=== PATIENT | male | born 1940 | race African-American/Black ===

== ENCOUNTER → 2016-07-01 | Outpatient (CLI) | payer MEDICARE, OTHER | LOC: RAD 14:13 | DX: R06.2 Wheezing (principal) | CPT/HCPCS: 71020 ==

== ENCOUNTER 2016-07-08 07:06 | Inpatient (IN) | payer MEDICARE, OTHER ==
--- NOTE | 2016-07-08 08:12 | ER Document Report ---
ED Respiratory Problem - General Chief Complaint: Shortness Of Breath Stated Complaint: DIFFICULTY BREATHING Time seen by provider: 08:08 Mode of Arrival: Medic Information source: Patient, Relative Notes: 75-year-old male presents to ED for shortness of breath C states he can't breathe with some rectal bleeding states he recently saw his primary and they told that he might be getting some blood from Dr. Kaur because he thought his lead level was 6.9. This man has an extensive history of renal failure diabetes and high blood pressure with sleep apnea. He usually does peritoneal dialysis at home. TRAVEL OUTSIDE OF THE [place] IN LAST 30 DAYS: No - HPI Onset: This morning Duration: Continuous Quality of pain: No pain Severity: None Pain Level: Denies Context: Other - High blood pressure diabetes renal failure and sleep apnea Short of Breath: Mild Sputum amount: None Associated symptoms: Short of breath Similar symptoms previously: Yes Recently seen / treated by doctor: Yes - Related Data Allergies/Adverse Reactions: No Known Allergies Allergy (Verified 09/02/15 07:02) Home Medications: Current Home Medications Amlodipine Besylate [Norvasc 5 mg Tablet] 5 mg PO DAILYP PRN 07/08/16 [History] Atenolol [Tenormin] 25 mg PO DAILYP PRN 07/08/16 [History] B Complex & C No.20/Folic Acid [Renal Caps Softgel] 1 mg PO DAILY 07/08/16 [ History] Calcitriol [Rocaltrol 0.25 mcg Capsule] 0.25 mcg PO MOFR 07/08/16 [History] Cinacalcet HCl [Sensipar 30 mg Tablet] 30 mg PO DAILY 07/08/16 [History] Epoetin Bk [Procrit Inj 20,000 Unit/1 ml Vial (Renal)] 20,000 units INJ ASDIR PRN 07/08/16 [History] Esomeprazole Magnesium [Nexium 24Hr] 20 mg PO DAILY 07/08/16 [History] Finasteride [Proscar 5 mg Tablet] 5 mg PO DAILY 07/08/16 [History] Folic Acid/Vitamin B Comp W-C [Nephrocaps Multiple Vitamin Capsule] 1 cap PO DAILY 07/08/16 [History] Insulin Glargine,Hum.rec.anlog [Lantus Insulin 100 Unit/1 ml 10 ml] 20 units SQ HSP PRN 07/08/16 [History] Lactobacillus Acidophilus [Probiotic] 1 cap PO DAILY 07/08/16 [History] Loperamide HCl [Imodium 2 mg Capsule] 2 mg PO Q6HP PRN 07/08/16 [History] Loratadine [Claritin 10 mg Tablet] 10 mg PO DAILY 07/08/16 [History] Magnesium Oxide [Mag-Ox 400 mg Tablet] 400 mg PO Q12 07/08/16 [History] Potassium Chloride [K-Tab ER] 20 meq PO DAILY 07/08/16 [History] Sertraline HCl [Zoloft 50 mg Tablet] 50 mg PO DAILY 07/08/16 [History] Past Medical History - General Information source: Patient - Social History Smoking Status: Former Smoker Cigarette use (# per day): No Chew tobacco use (# tins/day): No Smoking Education Provided: No Frequency of alcohol use: None Drug Abuse: None Occupation: disabled Lives with: Family Family History: Reviewed & Not Pertinent Patient has suicidal ideation: No Patient has homicidal ideation: No - Past Medical History Cardiac Medical History: Reports: Hx Hypertension Denies: Hx Atrial Fibrillation, Hx Congestive Heart Failure, Hx Coronary Artery Disease, Hx Heart Attack, Hx Hypercholesterolemia, Hx Peripheral Vascular Disease, Hx Pulmonary Embolism, Hx Heart Murmur Pulmonary Medical History: Reports: Hx Sleep Apnea Denies: Hx Asthma, Hx Bronchitis, Hx COPD, Hx Pneumonia, Hx Respiratory Failure, Hx Tuberculosis Neurological Medical History: Denies: Hx Cerebrovascular Accident, Hx Seizures Endocrine Medical History: Reports: Hx Diabetes Mellitus Type 2. Denies: Hx Graves' Disease, Hx Hyperthyroidism, Hx Hypothyroidism Renal/ Medical History: Reports: Hx End Stage Renal Disease, Hx Peritoneal Dialysis Malignancy Medical History: Reports None GI Medical History: Reports: Hx Gastroesophageal Reflux Disease, Hx Ulcer Musculoskeltal Medical History: Reports None Skin Medical History: Reports None Psychiatric Medical History: Reports: None, Hx Depression Traumatic Medical History: Reports: None Infectious Medical History: Reports: None Past Surgical History: Reports: Hx Inguinal Hernia, Hx Thyroid Surgery - Parathyroid, Hx Vascular Surgery - Fistula and peritoneal dialysis catheter. Denies: Hx Colostomy, Hx Pacemaker - Immunizations Hx Diphtheria, Pertussis, Tetanus Vaccination: No Hx Pneumococcal Vaccination: 01/04/12 Review of Systems - Review of Systems Constitutional: No symptoms reported EENT: No symptoms reported Cardiovascular: No symptoms reported Respiratory: Short of breath Gastrointestinal: No symptoms reported Genitourinary: No symptoms reported Male Genitourinary: No symptoms reported Musculoskeletal: No symptoms reported Skin: No symptoms reported Hematologic/Lymphatic: No symptoms reported Neurological/Psychological: No symptoms reported -: Yes All other systems reviewed and negative Physical Exam - Vital signs Vitals: Resp Pulse Ox 29 H 99 07/08/16 07:35 07/08/16 07:35 Interpretation: Normal - General General appearance: Appears well, Alert - HEENT Head: Normocephalic, Atraumatic Eyes: Normal Pupils: PERRL Neck: Other - Multiple keloid scars across the front of his neck around the side of his neck beside his ears across to his chest - Respiratory Respiratory status: No respiratory distress Chest status: Nontender Breath sounds: Normal, Decreased air movement Chest palpation: Normal - Cardiovascular Rhythm: Regular Heart sounds: Normal auscultation Murmur: No - Abdominal Inspection: Normal Distension: No distension Bowel sounds: Normal Tenderness: Nontender Organomegaly: No organomegaly - Back Back: Normal, Nontender - Extremities General upper extremity: Normal inspection, Nontender, Normal color, Normal ROM , Normal temperature General lower extremity: Normal inspection, Nontender, Normal color, Normal ROM , Normal temperature, Normal weight bearing. No: Mendy's sign - Neurological Neuro grossly intact: Yes Cognition: Normal Orientation: AAOx4 [place] Coma Scale Eye Opening: Spontaneous [place] Coma Scale Verbal: Oriented [place] Coma Scale Motor: Obeys Commands [place] Coma Scale Total: 15 Speech: Normal Motor strength normal: LUE, RUE, LLE, RLE Sensory: Normal - Psychological Associated symptoms: Normal affect, Normal mood - Skin Skin Temperature: Warm Skin Moisture: Dry Skin Color: Normal Course - Re-evaluation Re-evalutation: 07/08/16 18:[address] Adams before doing CT of the neck and before admit patient for hemoglobin of 6.7 with a positive stool for occult blood. Dr. Otto was notified and patient was admitted to [facility]. - Vital Signs Vital signs: Temp Pulse Resp BP Pulse Ox 97.3 F 80 22 H 172/84 H 97 07/08/16 18:42 07/08/16 18:42 07/08/16 18:42 07/08/16 18:42 07/08/16 18:42 - Laboratory Result Diagrams: 07/08/16 12:07 07/08/16 12:07 Laboratory results interpreted by me: 07/08/16 07/08/16 07/08/16 12:07 12:07 12:07 WBC 10.6 H RBC 2.82 L Hgb 6.7 L Hct 21.6 L MCV 76 L MCH 23.7 L MCHC 31.0 L RDW 22.6 H Seg Neuts % (Manual) 96 H Lymphocytes % (Manual) 3 L Monocytes % (Manual) 1 L Abs Neuts (Manual) 10.2 H Abs Lymphs (Manual) 0.3 L Sodium 135.5 L Potassium 3.5 L Chloride 91 L BUN 30 H Creatinine 6.35 H Est GFR ( Amer) 10 L Est GFR (Non-Af Amer) 9 L Glucose 201 H Calcium 8.0 L AST 16 L Alkaline Phosphatase 156 H Albumin 3.2 L Crossmatch See Detail - Diagnostic Test Radiology reviewed: Image reviewed, Reports reviewed - Consults Otto Time consulted: 12:00 Reason for consultation: 07/08/16 18:51 hemoglobin 6.7 positive occult blood, short of breath Consulted provider: will come to ER Discharge - Discharge Clinical Impression: ESRD (end stage renal disease) on dialysis, Rectal bleed Dyspnea Qualifiers: Dyspnea type: dyspnea on exertion Qualified Code(s): R06.09 - Other forms of dyspnea Anemia Qualifiers: Anemia type: unspecified type Qualified Code(s): D64.9 - Anemia, unspecified Disposition: ADMITTED INPATIENT Admitting Provider: Harrison otto Unit Admitted: [facility]
[2016-07-08] MEDS ORDERED: METHYLPREDNISOLONE INJ 125 MG/2 ML SDV IV ONE (08:43)
[2016-07-08] MEDS: ALBUTEROL SULFATE 0.083% NEB 2.5 MG/3 ML AMPUL NEB SCH ×2 (08:56→10:04)
[2016-07-08 12:24] LABS: HEMATOCRIT 21.6 % (37.9-51.0); HGB HCT DIFFERENCE -1.5; MEAN CORPUSCULAR HEMOGLOBIN 23.7 pg (27.0-33.4); MEAN CORPUSCULAR VOLUME 76 fl (80-97); RED BLOOD COUNT 2.82 10^6/uL (4.35-5.55); RED CELL DISTRIBUTION WIDTH 22.6 % (11.5-14.0); WHITE BLOOD COUNT 10.6 10^3/uL (4.0-10.5)
[2016-07-08 12:44] LABS: HEMOGLOBIN 6.7 g/dL (13.5-17.0)
[2016-07-08 12:46] LABS: ALANINE AMINOTRANSFERASE 23 U/L (21-72); ALBUMIN 3.2 g/dL (3.5-5.0); ALKALINE PHOSPHATASE 156 U/L (38-126); ANION GAP 18 (5-19); ASPARTATE AMINO TRANSFERASE 16 U/L (17-59); BASOPHILS % (MANUAL) 0 % (0-2); BILIRUBIN,TOTAL 0.7 mg/dL (0.2-1.3); BLOOD UREA NITROGEN 30 mg/dL (7-20); CARBON DIOXIDE 27 mmol/L (22-30); CHLORIDE 91 mmol/L (98-107); CREATINE KINASE 114 U/L (55-170); CREATININE RESULT 6.35 mg/dL (0.52-1.25); EOSINOPHILS % (MANUAL) 0 % (0-6); GLUCOSE 201 mg/dL (75-110); LYMPHOCYTES % (MANUAL) 3 % (13-45); POTASSIUM 3.5 mmol/L (3.6-5.0); SODIUM 135.5 mmol/L (137-145); TOTAL CELLS COUNTED 100; TOTAL PROTEIN 6.3 g/dL (6.3-8.2)
[2016-07-08 12:47] LABS: ANISOCYTOSIS 3+; HYPOCHROMASIA 1+; MICROCYTOSIS SLIGHT; OVALOCYTES 1+; POIKILOCYTOSIS 1+; POLYCHROMASIA SLIGHT; TEAR DROP CELLS SLIGHT
[2016-07-08 12:59] LABS: CREATINE KINASE MB 1.93 ng/mL (<4.55); TROPONIN I 0.017 ng/mL
[2016-07-08] MEDS ORDERED: ACETAMINOPHEN 325 MG TABLET PO PRN (13:55)
[2016-07-08] MEDS ORDERED: PANTOPRAZOLE SODIUM 40 MG VIAL IV ONE (14:03)
[2016-07-08] MEDS ORDERED: AMLODIPINE BESYLATE 10 MG TABLET PO PRN (14:07)
[2016-07-08] MEDS ORDERED: ATENOLOL 50 MG TABLET PO PRN ×2 (14:07→21:25)
[2016-07-08] MEDS ORDERED: DEXTROSE 50%-WATER 25 GM/50 ML DISP.SYRIN IV PRN ×2 (14:09)
[2016-07-08] MEDS ORDERED: INSULIN LISPRO 100 UNIT/ML 3 ML VIAL SUBCUT PRN (14:09)
[2016-07-08] MEDS ORDERED: DEXTROSE 40% GEL 15 GM TUBE PO PRN ×2 (14:09)
[2016-07-08] MEDS ORDERED: GLUCAGON,HUMAN RECOMB 1 MG INJ IM PRN (14:09)
[2016-07-08] MEDS ORDERED: NORMAL SALINE 250 ML IV PRN ×2 (14:09)
--- NOTE | 2016-07-08 14:13 | ER Document Report ---
Doctor's Note Notes: 07/08/16 14:12 Supervisory note. Patient independently seen and examined by myself and all treatment decisions made by myself Patient presents complaining of shortness of breath over past one week. He uses peritoneal dialysis at home and says he has not had any recent problems with that. Family reports he has dialysis access to his left upper extremity that was recently created and was supposed to have a balloon treatment done in [place] but this was stopped because the patient's respiratory difficulty. Patient reports slight nonproductive cough but denies fever, chills, nausea, or vomiting. Family also reports she's had rectal bleeding today. Patient says he was told he was anemic at his nephrologists office but has not received any blood. Patient denies hematemesis, melena, or dysuria. He denies any chest pain, abdominal pain, or back pain. Physical exam Skin warm and dry Oropharynx is moist speaks membranes no stridor horses drooling Neck has multiple keloids anteriorly and posteriorly. Trachea is midline. No JVD. No air hunger or tripoding is present Chest scattered wheezes bilaterally breath sounds equal good aeration accessory muscle use Heart regular rate and rhythm without murmur Abdomen bowel sounds positive soft nontender nondistended no guarding rebound rigidity Perineal dialysis catheter site appears healthy Extremities warm 2+ pulses Assessment and plan. Patient has mild respiratory difficulty for evaluation of his neck is not identified any airway compromise there and this may simply be a bronchitis or COPD exacerbation. He is also anemic and hemodynamically stable with evidence for GI bleed pericardia admission and transfusion for that 07/08/16 14:13
[2016-07-08] MEDS ORDERED: CALCITRIOL 0.25 MCG CAPSULE PO SCH (14:15)
[2016-07-08] MEDS: NORMAL SALINE 1000 ML 1,000 ML IV PRN (15:25)
--- NOTE | 2016-07-08 16:27 | EKG REPORT ---
SEVERITY:- ABNORMAL ECG - SINUS RHYTHM BORDERLINE REPOL ABNORMALITY, ANT-LAT LEADS PROLONGED QT INTERVAL : Confirmed by: Marc Steward MD 08-Jul-2016 16:26:43
--- NOTE | 2016-07-08 16:55 | PDOC H&P ---
History of Present Illness Admission Date/PCP: 07/08/16 13:56 Patient complains of: Shortness of breath and rectal bleeding History of Present Illness: VERNELL DOVE is a 75 year old male who presents to [facility] emergency department, with complaints of increasing shortness breath over the last week and rectal bleeding occurred earlier this am. Patient is an end-stage renal disease patient on peritoneal dialysis for the last 4 years. He is presently in the process of transitioning to hemodialysis. He states he began having shortness of breath that started a week ago. He denies any cough or sputum production. He denies any fevers or chills. He was seen by his primary care provider last Thursday. He was sent for a chest xray which was unremarkable. He had labs drawn in the dialysis center on Thursday and he was called yesterday with a drop in hemoglobin to 6.9. He was advised to go to the emergency department. His states he had a dark stool this morning with some crissy rectal blood. They therefore came into the emergency department. He denies any nausea, vomiting, abdominal pain, or hematemesis. Patient states he believes he had an ulcer in the past, and has been on Nexium for quite a long time. He does have a history of chronic anemia due to his long-standing end- stage renal disease. His baseline hemoglobin he believes is around 9. He denies any chest pain, dizziness, or lightheadedness. He has had no further bleeding since his arrival. Past Medical History Cardiac Medical History: Reports: Hypertension Denies: Atrial Fibrillation, Congestive Heart Failure, Coronary Artery Disease, Myocardial Infarction, Hyperlipidema, Peripheral Vascular Disease, Pulmonary Embolism, Heart Murmur Pulmonary Medical History: Reports: Sleep Apnea Denies: Asthma, Bronchitis, Chronic Obstructive Pulmonary Disease (COPD), Pneumonia, Respiratory Failure, Tuberculosis EENT Medical History: Reports: None Neurological Medical History: Reports: None Denies: Seizures Endocrine Medical History: Reports: Diabetes Mellitus Type 2 Denies: Hyperthyroidism, Hypothyroidism Renal/ Medical History: Reports: End Stage Renal Disease, Other - peritoneal dialysis, AV shunt in left forerarm Malignancy Medical History: Reports: None Denies: Breast Cancer, Cervical Cancer, Ovarian Cancer GI Medical History: Reports: Gastroesophageal Reflux Disease Musculoskeltal Medical History: Reports: None Skin Medical History: Reports: None Psychiatric Medical History: Reports: None, Depression Traumatic Medical History: Reports: None Hematology: Reports: Anemia - blood transfusion few times Denies: Hemophilia, Sickle Cell Disease Infectious Medical History: Reports: None Past Surgical History Past Surgical History: Reports: Vascular Surgery - Fistula and peritoneal dialysis catheter Denies: Colostomy, Pacemaker Social History Lives with: Family Smoking Status: Former Smoker Last Time Smoked: 2001 Frequency of Alcohol Use: None Hx Recreational Drug Use: No Drugs: None Hx Prescription Drug Abuse: No - Advance Directive Resuscitation Status: Full Code Surrogate healthcare decision maker:: , Jo Ann should he become incapacitated Family History Family History: DM, Hyperlipidemia, Hypertension Parental Family History Reviewed: Yes Children Family History Reviewed: Yes Sibling(s) Family History Reviewed.: Yes Medication/Allergy Home Medications: Amlodipine Besylate [Norvasc 5 mg Tablet] 5 mg PO DAILYP PRN 07/08/16 Atenolol [Tenormin] 25 mg PO DAILYP PRN 07/08/16 B Complex & C No.20/Folic Acid [Renal Caps Softgel] 1 mg PO DAILY 07/08/16 Calcitriol [Rocaltrol 0.25 mcg Capsule] 0.25 mcg PO MOFR 07/08/16 Cinacalcet HCl [Sensipar 30 mg Tablet] 30 mg PO DAILY 07/08/16 Epoetin Bk [Procrit Inj 20,000 Unit/1 ml Vial (Renal)] 20,000 units INJ ASDIR PRN 07/08/16 Esomeprazole Magnesium [Nexium 24Hr] 20 mg PO DAILY 07/08/16 Finasteride [Proscar 5 mg Tablet] 5 mg PO DAILY 07/08/16 Folic Acid/Vitamin B Comp W-C [Nephrocaps Multiple Vitamin Capsule] 1 cap PO DAILY 07/08/16 Insulin Glargine,Hum.rec.anlog [Lantus Insulin 100 Unit/1 ml 10 ml] 20 units SQ HSP PRN 07/08/16 Lactobacillus Acidophilus [Probiotic] 1 cap PO DAILY 07/08/16 Loperamide HCl [Imodium 2 mg Capsule] 2 mg PO Q6HP PRN 07/08/16 Loratadine [Claritin 10 mg Tablet] 10 mg PO DAILY 07/08/16 Magnesium Oxide [Mag-Ox 400 mg Tablet] 400 mg PO Q12 07/08/16 Potassium Chloride [K-Tab ER] 20 meq PO DAILY 07/08/16 Sertraline HCl [Zoloft 50 mg Tablet] 50 mg PO DAILY 07/08/16 Allergies/Adverse Reactions: No Known Allergies Allergy (Verified 09/02/15 07:02) Review of Systems Constitutional: ABSENT: chills, fever(s), headache(s), weight gain, weight loss Eyes: ABSENT: visual disturbances Ears: ABSENT: hearing changes Cardiovascular: ABSENT: chest pain, dyspnea on exertion, edema, orthropnea, palpitations Respiratory: ABSENT: cough, hemoptysis Gastrointestinal: ABSENT: abdominal pain, constipation, diarrhea, hematemesis, hematochezia, nausea, vomiting Genitourinary: ABSENT: dysuria, hematuria Musculoskeletal: ABSENT: joint swelling Integumentary: PRESENT: wounds, other - keloids over neck and anterior chest Neurological: ABSENT: abnormal gait, abnormal speech, confusion, dizziness, focal weakness, syncope Psychiatric: ABSENT: anxiety, depression, homidical ideation, suicidal ideation Endocrine: ABSENT: cold intolerance, heat intolerance, polydipsia, polyuria Hematologic/Lymphatic: ABSENT: easy bleeding, easy bruising Physical Exam Vital Signs: Temp Pulse Resp BP Pulse Ox 83 28 H 153/90 H 100 07/08/16 08:04 07/08/16 15:01 07/08/16 15:00 07/08/16 15:01 General appearance: PRESENT: no acute distress, obese, well-developed, well- nourished Head exam: PRESENT: atraumatic, normocephalic Eye exam: PRESENT: conjunctiva pale, EOMI, PERRLA. ABSENT: scleral icterus Ear exam: PRESENT: normal external ear exam Mouth exam: PRESENT: moist, tongue midline Neck exam: ABSENT: carotid bruit, JVD, lymphadenopathy, thyromegaly Respiratory exam: PRESENT: clear to auscultation collin, decreased breath sounds - bilaterally. ABSENT: rales, rhonchi, wheezes Cardiovascular exam: PRESENT: RRR. ABSENT: diastolic murmur, rubs, systolic murmur Pulses: PRESENT: normal dorsalis pedis pul Vascular exam: PRESENT: normal capillary refill GI/Abdominal exam: PRESENT: normal bowel sounds, soft. ABSENT: distended, guarding, mass, organolmegaly, rebound, tenderness Rectal exam: PRESENT: deferred Extremities exam: PRESENT: full ROM. ABSENT: calf tenderness, clubbing, pedal edema Neurological exam: PRESENT: alert, awake, oriented to person, oriented to place , oriented to time, oriented to situation, CN II-XII grossly intact. ABSENT: motor sensory deficit Psychiatric exam: PRESENT: appropriate affect, normal mood. ABSENT: homicidal ideation, suicidal ideation Skin exam: PRESENT: dry, intact, warm, other - multiple keloids from wounds received in the . ABSENT: cyanosis, rash Results Impressions: Chest X-Ray 07/08/16 07:25 IMPRESSION: Low lung volumes, portable film. No gross acute findings Soft Tissue Neck X-Ray 07/08/16 08:43 IMPRESSION: NEGATIVE STUDY OF THE SOFT TISSUES OF THE NECK. No plain film findings to explain history of upper airway wheezing. Results discussed with PAUL Cyr in the emergency room Soft Tissue Neck CT 07/08/16 11:26 IMPRESSION: NO SIGNIFICANT FINDING IN THE SOFT TISSUES OF THE NECK. Assessment & Plan - Diagnosis (1) Anemia Qualifiers: Anemia type: unspecified type Qualified Code(s): D64.9 - Anemia, unspecified Is this a current diagnosis for this admission?: YesPlan: Patient with baseline anemia of chronic disease, presents with rectal bleeding and hgb of 6.7 and shortness of breath. Will transfuse 2 units of PRBCs. Start on IV protonix and carafate. Consult GI (2) Dyspnea Qualifiers: Dyspnea type: dyspnea on exertion Qualified Code(s): R06.09 - Other forms of dyspnea Is this a current diagnosis for this admission?: YesPlan: Most likely related to low hemoglobin (3) ESRD (end stage renal disease) on dialysis Is this a current diagnosis for this admission?: YesPlan: Patient is presently on peritoneal dialysis, transitioning to hemodialysis once shunt is available (4) Rectal bleed Is this a current diagnosis for this admission?: YesPlan: Patient with guiac positive stool. Will start on IV protonix and carafate. Will consult GI. He does have a history of hemorrhoids as well (5) Hypertension Qualifiers: Hypertension type: essential hypertension Qualified Code(s): I10 - Essential (primary) hypertension Is this a current diagnosis for this admission?: YesPlan: Continue current medications with prn hydralazine (6) Peritoneal dialysis status Is this a current diagnosis for this admission?: YesPlan: Consult nephrology for assistance in management - Time Time Spent: 50 to 70 Minutes Critical Time spent with patient: 25-34 minutes Medications reviewed and adjusted accordingly: Yes - Inpatient Certification Based on my medical assessment, after consideration of the patient's comorbidities, presenting symptoms, or acuity I expect that the services needed warrant INPATIENT care.: Yes I certify that my determination is in accordance with my understanding of Medicare's requirements for reasonable and necessary INPATIENT services [42 CFR 412.3e].: Yes Medical Necessity: Need Close Monitoring Due to Risk of Patient Decompensation, Need For IV Fluids, Risk of Complication if Not Cared For in Hospital
--- NOTE | 2016-07-08 19:46 | PDOC CONSULTATION ---
Consultation Consult Date: 07/08/16 Consult reason:: ESRD on PD History of Present Illness Admission Date/PCP: 07/08/16 13:56 History of Present Illness: VERNELL DOVE is a 75 year old male with a history of end- stage renal disease on peritoneal dialysis presents to [facility] emergency department, with complaints of increasing shortness breath over the last week and rectal bleeding occurred earlier this am. Patient is an end- stage renal disease patient on peritoneal dialysis for the last 4 years. He is presently in the process of transitioning to hemodialysis. He states he began having shortness of breath that started a week ago. He denies any cough or sputum production. He denies any fevers or chills. He was seen by his primary care provider last Thursday. He was sent for a chest xray which was unremarkable. He had labs drawn in the dialysis center on Thursday and he was called yesterday with a drop in hemoglobin to 6.9. He was advised to go to the emergency department. His states he had a dark stool this morning with some crissy rectal blood. They therefore came into the emergency department. He denies any nausea, vomiting, abdominal pain, or hematemesis. Patient states he believes he had an ulcer in the past, and has been on Nexium for quite a long time. He does have a history of chronic anemia due to his long-standing end-stage renal disease. His baseline hemoglobin he believes is around 9. He denies any chest pain, dizziness, or lightheadedness. He has had no further bleeding since his arrival. Being transfused as I see him now. Patient already feeling a whole lot better according to him and his . Patient's states that his head is usually swollen especially early in the morning after he gets off the CPap which he uses for his sleep apnea. She also states that his blood pressure lately has been more difficult to control. There is no history of using any NSAIDs. He did have a colonoscopy by Dr. No in 2016. There is no history of having had upper GI endoscopy. Past Medical History Cardiac Medical History: Denies: Atrial Fibrillation, Coronary Artery Disease, Heart Murmur, Hyperlipidemia, Myocardial Infarction, Peripheral Vascular Disease, Pulmonary Embolism Pulmonary Medical History: Reports: Sleep Apnea Denies: Asthma, Bronchitis, Chronic Obstructive Pulmonary Disease (COPD), Pneumonia, Respiratory Failure, Tuberculosis EENT Medical History: Reports: None Neurological Medical History: Reports: None Denies: Seizures Endocrine Medical History: Reports: Diabetes Mellitus Type 2 Denies: Hyperthyroidism, Hypothyroidism Complications of Diabetes: Reports: None Renal/ Medical History: Reports: End Stage Renal Disease, Other - peritoneal dialysis, AV shunt in left forerarm Malignancy Medical History: Reports: None Denies: Breast Cancer, Cervical Cancer, Ovarian Cancer GI Medical History: Reports: Gastroesophageal Reflux Disease Musculoskeltal Medical History: Reports: None Denies: Rheumatoid Arthritis, Systemic Lupus Erythematosus Skin Medical History: Reports: None Psychiatric Medical History: Reports: None, Depression Traumatic Medical History: Reports: None Infectious Medical History: Reports: None Past Surgical History Past Surgical History: Reports: Vascular Surgery - Fistula and peritoneal dialysis catheter Denies: Colostomy, Pacemaker Social History Lives with: Family Smoking Status: Former Smoker Last Time Smoked: 2001 Frequency of Alcohol Use: None Hx Recreational Drug Use: No Drugs: None Hx Prescription Drug Abuse: No - Advance Directive Resuscitation Status: Full Code Family History Parental Family History Reviewed: No Children Family History Reviewed: No Sibling(s) Family History Reviewed.: No Medication/Allergy Home Medications: Amlodipine Besylate [Norvasc 5 mg Tablet] 5 mg PO DAILYP PRN 07/08/16 Atenolol [Tenormin] 25 mg PO DAILYP PRN 07/08/16 B Complex & C No.20/Folic Acid [Renal Caps Softgel] 1 mg PO DAILY 07/08/16 Calcitriol [Rocaltrol 0.25 mcg Capsule] 0.25 mcg PO MOFR 07/08/16 Cinacalcet HCl [Sensipar 30 mg Tablet] 30 mg PO DAILY 07/08/16 Epoetin Bk [Procrit Inj 20,000 Unit/1 ml Vial (Renal)] 20,000 units INJ ASDIR PRN 07/08/16 Esomeprazole Magnesium [Nexium 24Hr] 20 mg PO DAILY 07/08/16 Finasteride [Proscar 5 mg Tablet] 5 mg PO DAILY 07/08/16 Folic Acid/Vitamin B Comp W-C [Nephrocaps Multiple Vitamin Capsule] 1 cap PO DAILY 07/08/16 Insulin Glargine,Hum.rec.anlog [Lantus Insulin 100 Unit/1 ml 10 ml] 20 units SQ HSP PRN 07/08/16 Lactobacillus Acidophilus [Probiotic] 1 cap PO DAILY 07/08/16 Loperamide HCl [Imodium 2 mg Capsule] 2 mg PO Q6HP PRN 07/08/16 Loratadine [Claritin 10 mg Tablet] 10 mg PO DAILY 07/08/16 Magnesium Oxide [Mag-Ox 400 mg Tablet] 400 mg PO Q12 07/08/16 Potassium Chloride [K-Tab ER] 20 meq PO DAILY 07/08/16 Sertraline HCl [Zoloft 50 mg Tablet] 50 mg PO DAILY 07/08/16 Allergies/Adverse Reactions: No Known Allergies Allergy (Verified 09/02/15 07:02) Review of Systems Review of Systems: Constitutional: PRESENT: as per HPI. ABSENT: chills, fever(s), headache(s), weight gain, weight loss Eyes: ABSENT: visual disturbances Ears: ABSENT: hearing changes Cardiovascular: ABSENT: chest pain, edema, orthropnea, palpitations Respiratory: ABSENT: cough, hemoptysis Gastrointestinal: ABSENT: abdominal pain, constipation, diarrhea, hematemesis, nausea, vomiting Genitourinary: ABSENT: dysuria, hematuria Musculoskeletal: ABSENT: joint swelling Integumentary: ABSENT: rash, wounds Neurological: ABSENT: abnormal gait, abnormal speech, confusion, dizziness, focal weakness, syncope Psychiatric: ABSENT: anxiety, depression, homicidal ideation, suicidal ideation Endocrine: ABSENT: cold intolerance, heat intolerance, menstrual abnormalities, polydipsia, polyuria Hematologic/Lymphatic: ABSENT: easy bleeding, easy bruising, lymphadenopathy Physical Exam Vital Signs: Temp Pulse Resp BP Pulse Ox 97.5 F 81 21 H 178/88 H 97 07/08/16 18:57 07/08/16 18:57 07/08/16 18:57 07/08/16 18:57 07/08/16 18:57 Intake & Output 07/07/16 07/08/16 07/09/16 06:59 06:59 06:59 Intake Total 0 Balance 0 Weight 88.8 kg General appearance: PRESENT: no acute distress Eye exam: PRESENT: conjunctiva pale, EOMI, PERRLA. ABSENT: nystagmus, scleral icterus Ear exam: ABSENT: drainage, normal external ear exam, TM's normal bilaterally Mouth exam: PRESENT: dry mucosa Neck exam: ABSENT: lymphadenopathy, meningismus, tenderness, thyromegaly Respiratory exam: PRESENT: clear to auscultation collin, symmetrical, unlabored. ABSENT: crackles, rhonchi Cardiovascular exam: PRESENT: +S1, +S2, systolic murmur GI/Abdominal exam: PRESENT: distended, firm - from PD fluid, soft. ABSENT: organomegaly, rigid, tenderness Neurological exam: PRESENT: alert, awake, oriented to person, oriented to place , oriented to time Results Impressions: Chest X-Ray 07/08/16 07:25 IMPRESSION: Low lung volumes, portable film. No gross acute findings Soft Tissue Neck X-Ray 07/08/16 08:43 IMPRESSION: NEGATIVE STUDY OF THE SOFT TISSUES OF THE NECK. No plain film findings to explain history of upper airway wheezing. Results discussed with PAUL Cyr in the emergency room Soft Tissue Neck CT 07/08/16 11:26 IMPRESSION: NO SIGNIFICANT FINDING IN THE SOFT TISSUES OF THE NECK. Assessment & Plan - Diagnosis (1) Acute blood loss anemia Plan: Patient is currently being transfused. Hemodynamically stable. GI consult is on. (2) Dyspnea Qualifiers: Dyspnea type: dyspnea on exertion Qualified Code(s): R06.09 - Other forms of dyspnea Is this a current diagnosis for this admission?: YesPlan: No overt clinical evidences of congestive heart failure. I believe patient has pulmonary hypertension and we'll see if I can extract an old echocardiogram. Meanwhile I'll place an order for using CPAP Tonight. (3) ESRD (end stage renal disease) on dialysis Is this a current diagnosis for this admission?: YesPlan: Placing orders for continuing of peritoneal dialysis. (4) Rectal bleed Is this a current diagnosis for this admission?: Yes (5) Hyperkalemia Plan: Stable and in fact has potassium on the low normal. (6) Hypertension Qualifiers: Hypertension type: essential hypertension Qualified Code(s): I10 - Essential (primary) hypertension Is this a current diagnosis for this admission?: YesPlan: Uncontrolled. We'll add clonidine 0.1 mouth now followed by every at bedtime. (7) Peritoneal dialysis status Is this a current diagnosis for this admission?: Yes (8) Hypomagnesemia Plan: Follow-upon mag levels in the morning. 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
[2016-07-08] MEDS: SUCRALFATE 1 GM TABLET PO SCH (20:14)
[2016-07-08] MEDS: MAGNESIUM OXIDE 400 MG TABLET PO SCH (20:14)
[2016-07-08] MEDS ORDERED: BISACODYL 5 MG TABEC PO ONE (21:00)
[2016-07-08] MEDS ORDERED: AMLODIPINE BESYLATE 10 MG TABLET PO ONE (22:00)
[2016-07-08] MEDS: CLONIDINE HCL 0.1 MG TABLET PO SCH (22:02)
[2016-07-08] MEDS: PANTOPRAZOLE SODIUM 40 MG VIAL IV SCH (22:03)
[2016-07-09] MEDS: SUCRALFATE 1 GM TABLET PO SCH ×3 (00:18→12:05)
[2016-07-09] MEDS ORDERED: PEG 3350/NA SULF,BICARB,CL/KCL 4000 ML PO ONE (07:00)
[2016-07-09 08:07] LABS: ABSOLUTE LYMPHOCYTES (AUTO) 0.6 10^3/uL (0.5-4.7); ABSOLUTE MONOCYTES (AUTO) 0.3 10^3/uL (0.1-1.4); ABSOLUTE NEUT (AUTO) 8.7 10^3/uL (1.7-8.2); BASOPHILS % (AUTO) 0.2 % (0-2); EOSINOPHILS % (AUTO) 0.2 % (0-6); HEMOGLOBIN 8.1 g/dL (13.5-17.0); HGB HCT DIFFERENCE -0.7; MEAN CORPUSCULAR HEMOGLOBIN 25.2 pg (27.0-33.4); MEAN CORPUSCULAR HGB CONC 32.4 g/dL (32.0-36.0); MEAN CORPUSCULAR VOLUME 78 fl (80-97); MONOCYTES % (AUTO) 3.1 % (3-13); RED BLOOD COUNT 3.21 10^6/uL (4.35-5.55); RED CELL DISTRIBUTION WIDTH 22.6 % (11.5-14.0); SEGMENTED NEUTROPHILS % (AUTO) 90.5 % (42-78); WHITE BLOOD COUNT 9.7 10^3/uL (4.0-10.5)
[2016-07-09 08:25] LABS: ALANINE AMINOTRANSFERASE 20 U/L (21-72); ALKALINE PHOSPHATASE 126 U/L (38-126); ANION GAP 18 (5-19); ASPARTATE AMINO TRANSFERASE 19 U/L (17-59); BILIRUBIN,TOTAL 0.7 mg/dL (0.2-1.3); BLOOD UREA NITROGEN 35 mg/dL (7-20); CALCIUM 8.2 mg/dL (8.4-10.2); CARBON DIOXIDE 29 mmol/L (22-30); CHLORIDE 92 mmol/L (98-107); CREATININE RESULT 6.49 mg/dL (0.52-1.25); GLUCOSE 87 mg/dL (75-110); MAGNESIUM 1.5 mg/dL (1.6-2.3); PHOSPHORUS 2.7 mg/dL (2.5-4.5); POTASSIUM 3.5 mmol/L (3.6-5.0); SODIUM 138.9 mmol/L (137-145); TOTAL PROTEIN 6.1 g/dL (6.3-8.2)
[2016-07-09] MEDS ORDERED: CINACALCET HCL 30 MG TABLET PO SCH (10:00)
[2016-07-09] MEDS ORDERED: AMLODIPINE BESYLATE 10 MG TABLET PO PRN (10:00)
[2016-07-09] MEDS ORDERED: (PENDING PHARMACY ID) (Potassium Chloride [K-Tab Er] 20 MEQ) PO SCH (10:00)
[2016-07-09] MEDS ORDERED: FINASTERIDE 5 MG TABLET PO SCH (10:00)
[2016-07-09] MEDS ORDERED: SERTRALINE HCL 50 MG TABLET PO SCH (10:00)
[2016-07-09] MEDS ORDERED: LACTOBACILLUS ACIDOPHILUS PO SCH (10:00)
[2016-07-09] MEDS: MAGNESIUM SULFATE/D5W 1 GM/100 ML RTUPB IV SCH ×2 (10:48→12:05)
[2016-07-09] MEDS: PANTOPRAZOLE SODIUM 40 MG VIAL IV SCH (10:50)
[2016-07-09] MEDS: AMLODIPINE BESYLATE 5 MG TABLET PO SCH (10:50)
[2016-07-09] MEDS: SERTRALINE HCL 50 MG TABLET PO SCH (10:50)
[2016-07-09] MEDS: FINASTERIDE 5 MG TABLET PO SCH (10:51)
[2016-07-09] MEDS: LORATADINE 10 MG TABLET PO SCH (10:51)
[2016-07-09] MEDS: ATENOLOL 50 MG TABLET PO SCH (10:51)
[2016-07-09] MEDS: MAGNESIUM OXIDE 400 MG TABLET PO SCH ×2 (10:52→21:38)
[2016-07-09] MEDS: LACTOBACILLUS ACIDOPHILUS 250 MG TAB PO SCH (10:52)
[2016-07-09] MEDS: POTASSIUM CHLORIDE 10 MEQ TABLET.SA PO SCH (10:52)
[2016-07-09] MEDS: CINACALCET HCL 30 MG TABLET PO SCH (10:53)
--- NOTE | 2016-07-09 15:37 | PDOC PROGRESS REPORT ---
Subjective Progress Note for:: 07/09/16 Subjective:: Patient seen on morning rounds. He is resting comfortably in bed. His is at bedside. He states he had several loose dark colored stools last night. He denies any abdominal pain. He denies any chest pain, shortness of breath, or dizziness. He denies any nausea. He voices no other complaints at the present time. He is scheduled for EGD/Colonoscopy later today with Dr Patton Physical Exam Vital Signs: Temp Pulse Resp BP Pulse Ox 97.3 F 73 22 H 120/58 L 98 07/09/16 12:45 07/09/16 12:45 07/09/16 12:45 07/09/16 12:45 07/09/16 12:45 Intake & Output 07/08/16 07/09/16 07/10/16 06:59 06:59 06:59 Intake Total 5951 Output Total 4400 Balance 1551 Weight 89.5 kg General appearance: PRESENT: no acute distress, obese, well-developed, well- nourished Head exam: PRESENT: atraumatic, normocephalic Eye exam: PRESENT: conjunctiva pink, EOMI, PERRLA. ABSENT: scleral icterus Ear exam: PRESENT: normal external ear exam Mouth exam: PRESENT: moist, tongue midline Neck exam: ABSENT: carotid bruit, JVD, lymphadenopathy, thyromegaly Respiratory exam: PRESENT: clear to auscultation collin. ABSENT: rales, rhonchi, wheezes Cardiovascular exam: PRESENT: RRR. ABSENT: diastolic murmur, rubs, systolic murmur Pulses: PRESENT: normal dorsalis pedis pul Vascular exam: PRESENT: normal capillary refill GI/Abdominal exam: PRESENT: normal bowel sounds, soft. ABSENT: distended, guarding, mass, organolmegaly, rebound, tenderness Rectal exam: PRESENT: deferred Extremities exam: PRESENT: full ROM. ABSENT: calf tenderness, clubbing, pedal edema Neurological exam: PRESENT: alert, awake, oriented to person, oriented to place , oriented to time, oriented to situation, CN II-XII grossly intact. ABSENT: motor sensory deficit Psychiatric exam: PRESENT: appropriate affect, normal mood. ABSENT: homicidal ideation, suicidal ideation Skin exam: PRESENT: dry, intact, warm. ABSENT: cyanosis, rash Results Laboratory Results: 07/09/16 06:35 07/09/16 06:30 07/09/16 07/09/16 06:30 06:35 WBC 9.7 RBC 3.21 L Hgb 8.1 L Hct 25.0 L MCV 78 L MCH 25.2 L MCHC 32.4 RDW 22.6 H Plt Count 197 Seg Neutrophils % 90.5 H Lymphocytes % 6.0 L Monocytes % 3.1 Eosinophils % 0.2 Basophils % 0.2 Absolute Neutrophils 8.7 H Absolute Lymphocytes 0.6 Absolute Monocytes 0.3 Absolute Eosinophils 0.0 Absolute Basophils 0.0 Sodium 138.9 Potassium 3.5 L Chloride 92 L Carbon Dioxide 29 Anion Gap 18 BUN 35 H Creatinine 6.49 H Est GFR ( Amer) 10 L Est GFR (Non-Af Amer) 8 L Glucose 87 Calcium 8.2 L Phosphorus 2.7 Magnesium 1.5 L Total Bilirubin 0.7 AST 19 ALT 20 L Alkaline Phosphatase 126 Total Protein 6.1 L Albumin 3.0 L Impressions: Chest X-Ray 07/08/16 07:25 IMPRESSION: Low lung volumes, portable film. No gross acute findings Soft Tissue Neck X-Ray 07/08/16 08:43 IMPRESSION: NEGATIVE STUDY OF THE SOFT TISSUES OF THE NECK. No plain film findings to explain history of upper airway wheezing. Results discussed with PAUL Cyr in the emergency room Soft Tissue Neck CT 07/08/16 11:26 IMPRESSION: NO SIGNIFICANT FINDING IN THE SOFT TISSUES OF THE NECK. Lung Scan-VQ NM 07/09/16 00:00 IMPRESSION: NORMAL PERFUSION LUNG SCAN. NEGATIVE FOR PULMONARY EMBOLI. Assessment & Plan - Diagnosis (1) Anemia Qualifiers: Anemia type: unspecified type Qualified Code(s): D64.9 - Anemia, unspecified Is this a current diagnosis for this admission?: YesPlan: Patient with baseline anemia of chronic disease, presents with rectal bleeding and hgb of 6.7 and shortness of breath. Will transfuse 2 units of PRBCs. Start on IV protonix and carafate. Consult GI (2) Dyspnea Qualifiers: Dyspnea type: dyspnea on exertion Qualified Code(s): R06.09 - Other forms of dyspnea Is this a current diagnosis for this admission?: YesPlan: Most likely related to low hemoglobin (3) ESRD (end stage renal disease) on dialysis Is this a current diagnosis for this admission?: YesPlan: Patient is presently on peritoneal dialysis, transitioning to hemodialysis once shunt is available (4) Rectal bleed Is this a current diagnosis for this admission?: YesPlan: Patient with guiac positive stool. Will start on IV protonix and carafate. Will consult GI. He does have a history of hemorrhoids as well (5) Hypertension Qualifiers: Hypertension type: essential hypertension Qualified Code(s): I10 - Essential (primary) hypertension Is this a current diagnosis for this admission?: YesPlan: Continue current medications with prn hydralazine (6) Peritoneal dialysis status Is this a current diagnosis for this admission?: YesPlan: Consult nephrology for assistance in management - Time Time Spent with patient: 25-34 minutes Critical Time spent with patient: 15-24 minutes Medications reviewed and adjusted accordingly: Yes
[2016-07-09] MEDS ORDERED: NALOXONE HCL INJ/PF 0.4 MG/1 ML SDV ONE (17:53)
[2016-07-09] MEDS ORDERED: PROMETHAZINE HCL INJ 25 MG/1 ML VIAL ONE (17:53)
[2016-07-09] MEDS ORDERED: FENTANYL CITRATE INJ/PF 100 MCG/2 ML AMPUL ONE (17:54)
[2016-07-09] MEDS ORDERED: FLUMAZENIL INJ 0.5 MG/5 ML VIAL IV ONE (17:54)
[2016-07-09] MEDS ORDERED: MIDAZOLAM 2 MG/2 ML INJ ONE (17:54)
[2016-07-09] MEDS ORDERED: GLUCAGON,HUMAN RECOMB 1 MG INJ ONE (17:55)
[2016-07-09] MEDS ORDERED: EPINEPHRINE INJ 1 MG/10 ML DISP.SYRIN ONE (17:55)
--- NOTE | 2016-07-09 18:02 | PDOC PROGRESS REPORT ---
Subjective Progress Note for:: 07/09/16 Subjective:: Patient seen this morning.He is generally doing better since his admission.He has had some more dark stools overnight but no crissy hematochezia. He is nil by mouth this morning as he is being prepped for endoscopy/colonoscopy later today. He denies any history of abdominal pains or chest pains. Shortness of breath is better but still labored. He is undergoing PD dialysis without any issues. Physical Exam Vital Signs: Temp Pulse Resp BP Pulse Ox 97.3 F 71 22 H 120/58 L 98 07/09/16 12:45 07/09/16 14:00 07/09/16 12:45 07/09/16 12:45 07/09/16 12:45 Intake & Output 07/08/16 07/09/16 07/10/16 06:59 06:59 06:59 Intake Total 5951 0 Output Total 4400 Balance 1551 0 Weight 89.5 kg General appearance: PRESENT: no acute distress Respiratory exam: PRESENT: clear to auscultation collin, decreased breath sounds. ABSENT: crackles, rales Cardiovascular exam: PRESENT: +S1, +S2, systolic murmur GI/Abdominal exam: PRESENT: distended, firm - from PD fluid, soft. ABSENT: organomegaly, rigid, tenderness Extremities exam: ABSENT: pedal edema Results Laboratory Results: 07/09/16 06:35 07/09/16 06:30 07/09/16 07/09/16 06:30 06:35 WBC 9.7 RBC 3.21 L Hgb 8.1 L Hct 25.0 L MCV 78 L MCH 25.2 L MCHC 32.4 RDW 22.6 H Plt Count 197 Seg Neutrophils % 90.5 H Lymphocytes % 6.0 L Monocytes % 3.1 Eosinophils % 0.2 Basophils % 0.2 Absolute Neutrophils 8.7 H Absolute Lymphocytes 0.6 Absolute Monocytes 0.3 Absolute Eosinophils 0.0 Absolute Basophils 0.0 Sodium 138.9 Potassium 3.5 L Chloride 92 L Carbon Dioxide 29 Anion Gap 18 BUN 35 H Creatinine 6.49 H Est GFR ( Amer) 10 L Est GFR (Non-Af Amer) 8 L Glucose 87 Calcium 8.2 L Phosphorus 2.7 Magnesium 1.5 L Total Bilirubin 0.7 AST 19 ALT 20 L Alkaline Phosphatase 126 Total Protein 6.1 L Albumin 3.0 L Impressions: Chest X-Ray 07/08/16 07:25 IMPRESSION: Low lung volumes, portable film. No gross acute findings Soft Tissue Neck X-Ray 07/08/16 08:43 IMPRESSION: NEGATIVE STUDY OF THE SOFT TISSUES OF THE NECK. No plain film findings to explain history of upper airway wheezing. Results discussed with PAUL Cyr in the emergency room Soft Tissue Neck CT 07/08/16 11:26 IMPRESSION: NO SIGNIFICANT FINDING IN THE SOFT TISSUES OF THE NECK. Lung Scan-VQ NM 07/09/16 00:00 IMPRESSION: NORMAL PERFUSION LUNG SCAN. NEGATIVE FOR PULMONARY EMBOLI. Assessment & Plan - Diagnosis (1) Acute blood loss anemia Plan: He is undergoing GI evaluations. Hemodynamically stable. Hemoglobin stable posttransfusion. (2) Dyspnea Qualifiers: Dyspnea type: dyspnea on exertion Qualified Code(s): R06.09 - Other forms of dyspnea Is this a current diagnosis for this admission?: YesPlan: Though better he is still having labored breathing. I am going to get a VQ scan. Discussed with treating nurse Mel. (3) ESRD (end stage renal disease) on dialysis Is this a current diagnosis for this admission?: YesPlan: Undergoing CAPD without any issues. Discussed treatments and modalities with him and his . (4) Rectal bleed Is this a current diagnosis for this admission?: YesPlan: Still having active melena even though no crissy hematochezia. Further evaluations and management as per GI. (6) Hypertension Qualifiers: Hypertension type: essential hypertension Qualified Code(s): I10 - Essential (primary) hypertension Is this a current diagnosis for this admission?: YesPlan: Stable. (7) Peritoneal dialysis status Is this a current diagnosis for this admission?: Yes
--- NOTE | 2016-07-09 19:21 | PDOC CONSULTATION ---
Consultation Consult Date: 07/08/16 History of Present Illness Admission Date/PCP: 07/08/16 13:56 History of Present Illness: This is a 75-year-old patient was admitted on 07/08/2016 with shortness of breath and rectal bleeding. According to the patient and he has been having problems breathing off and on for years but more so in the last 3-4 weeks. On admission his hemoglobin was 6.9. He has a chronic history of anemia and usually stays around 8-9 hemoglobin. He did have some bright red blood per rectum on one location prior to being admitted. His stool has also been darker than usual over the last few days. He denies abdominal pain, nausea, or vomiting. He had a colonoscopy in January 2014 that showed pancolonic diverticulosis, adenomatous polyps and hemorrhoids. His admission chest x-ray only revealed low lung volumes and another x-ray performed on 07/01/2016 showed the same findings. He had a VQ scan that was unremarkable. Past Medical History Cardiac Medical History: Reports: Hypertension Denies: Atrial Fibrillation, Congestive Heart Failure, Coronary Artery Disease, Myocardial Infarction, Hyperlipidema, Peripheral Vascular Disease, Pulmonary Embolism, Heart Murmur Pulmonary Medical History: Reports: Sleep Apnea Denies: Asthma, Bronchitis, Chronic Obstructive Pulmonary Disease (COPD), Pneumonia, Respiratory Failure, Tuberculosis EENT Medical History: Reports: None Neurological Medical History: Reports: None Denies: Seizures Endocrine Medical History: Reports: Diabetes Mellitus Type 2 Denies: Hyperthyroidism, Hypothyroidism Renal/ Medical History: Reports: End Stage Renal Disease, Other - peritoneal dialysis, AV shunt in left forerarm Malignancy Medical History: Reports: None Denies: Breast Cancer, Cervical Cancer, Ovarian Cancer GI Medical History: Reports: Gastroesophageal Reflux Disease GI History Note: Diverticulosis, colon polyps, and hemorrhoids Musculoskeltal Medical History: Reports: None Skin Medical History: Reports: None Psychiatric Medical History: Reports: None, Depression Traumatic Medical History: Reports: None Hematology: Reports: Anemia - blood transfusion few times Denies: Hemophilia, Sickle Cell Disease Infectious Medical History: Reports: None Past Surgical History Past Surgical History: Colonoscopy in January 2014 Past Surgical History: Reports: Vascular Surgery - Fistula and peritoneal dialysis catheter Denies: Colostomy, Pacemaker Social History Lives with: Family Smoking Status: Former Smoker Last Time Smoked: 2001 Frequency of Alcohol Use: None Hx Recreational Drug Use: No Drugs: None Hx Prescription Drug Abuse: No - Advance Directive Resuscitation Status: Full Code Family History Family History: Reviewed & Not Pertinent Parental Family History Reviewed: No Children Family History Reviewed: NA Sibling(s) Family History Reviewed.: NA Medication/Allergy Home Medications: Amlodipine Besylate [Norvasc 5 mg Tablet] 5 mg PO DAILYP PRN 07/08/16 Atenolol [Tenormin] 25 mg PO DAILYP PRN 07/08/16 B Complex & C No.20/Folic Acid [Renal Caps Softgel] 1 mg PO DAILY 07/08/16 Calcitriol [Rocaltrol 0.25 mcg Capsule] 0.25 mcg PO MOFR 07/08/16 Cinacalcet HCl [Sensipar 30 mg Tablet] 30 mg PO DAILY 07/08/16 Epoetin Bk [Procrit Inj 20,000 Unit/1 ml Vial (Renal)] 20,000 units INJ ASDIR PRN 07/08/16 Esomeprazole Magnesium [Nexium 24Hr] 20 mg PO DAILY 07/08/16 Finasteride [Proscar 5 mg Tablet] 5 mg PO DAILY 07/08/16 Folic Acid/Vitamin B Comp W-C [Nephrocaps Multiple Vitamin Capsule] 1 cap PO DAILY 07/08/16 Insulin Glargine,Hum.rec.anlog [Lantus Insulin 100 Unit/1 ml 10 ml] 20 units SQ HSP PRN 07/08/16 Lactobacillus Acidophilus [Probiotic] 1 cap PO DAILY 07/08/16 Loperamide HCl [Imodium 2 mg Capsule] 2 mg PO Q6HP PRN 07/08/16 Loratadine [Claritin 10 mg Tablet] 10 mg PO DAILY 07/08/16 Magnesium Oxide [Mag-Ox 400 mg Tablet] 400 mg PO Q12 07/08/16 Potassium Chloride [K-Tab ER] 20 meq PO DAILY 07/08/16 Sertraline HCl [Zoloft 50 mg Tablet] 50 mg PO DAILY 07/08/16 Allergies/Adverse Reactions: No Known Allergies Allergy (Verified 09/02/15 07:02) Review of Systems All systems: reviewed and no additional remarkable complaints except as stated Physical Exam Vital Signs: Temp Pulse Resp BP Pulse Ox 97.3 F 70 23 H 162/72 H 100 07/09/16 12:45 07/09/16 18:25 07/09/16 18:25 07/09/16 18:25 07/09/16 18:25 Intake & Output 07/08/16 07/09/16 07/10/16 06:59 06:59 06:59 Intake Total 5951 1025 Output Total 4400 Balance 1551 1025 Weight 89.5 kg Exam: General: Patient is alert and appears to have shortness of breath. His O2 sat duration was 100% on 2 L of oxygen. He was not taking deep breaths HEENT: There is pallor but no jaundice. PERRLA. Oropharynx normal Respiratory: He has some kyphosis. Breath sounds were reduced bilaterally Cardiovascular: Heart sounds 1 and 2 normal with no murmurs. Abdominal: Obese. Soft and nontender. Liver and spleen not palpable. No ascites demonstrated. Bowel sounds active. Rectal examination was deferred. Extremities: No edema Neurological: Alert and oriented x4. Grossly nonfocal. Normal speech Skin: He has multiple keloid formation all over his skin especially on the trunk Psychological: Normal affect Results Laboratory Results: 07/09/16 06:35 07/09/16 06:30 07/09/16 07/09/16 06:30 06:35 WBC 9.7 RBC 3.21 L Hgb 8.1 L Hct 25.0 L MCV 78 L MCH 25.2 L MCHC 32.4 RDW 22.6 H Plt Count 197 Seg Neutrophils % 90.5 H Lymphocytes % 6.0 L Monocytes % 3.1 Eosinophils % 0.2 Basophils % 0.2 Absolute Neutrophils 8.7 H Absolute Lymphocytes 0.6 Absolute Monocytes 0.3 Absolute Eosinophils 0.0 Absolute Basophils 0.0 Sodium 138.9 Potassium 3.5 L Chloride 92 L Carbon Dioxide 29 Anion Gap 18 BUN 35 H Creatinine 6.49 H Est GFR ( Amer) 10 L Est GFR (Non-Af Amer) 8 L Glucose 87 Calcium 8.2 L Phosphorus 2.7 Magnesium 1.5 L Total Bilirubin 0.7 AST 19 ALT 20 L Alkaline Phosphatase 126 Total Protein 6.1 L Albumin 3.0 L Impressions: Chest X-Ray 07/08/16 07:25 IMPRESSION: Low lung volumes, portable film. No gross acute findings Soft Tissue Neck X-Ray 07/08/16 08:43 IMPRESSION: NEGATIVE STUDY OF THE SOFT TISSUES OF THE NECK. No plain film findings to explain history of upper airway wheezing. Results discussed with PAUL Cyr in the emergency room Soft Tissue Neck CT 07/08/16 11:26 IMPRESSION: NO SIGNIFICANT FINDING IN THE SOFT TISSUES OF THE NECK. Lung Scan-VQ NM 07/09/16 00:00 IMPRESSION: NORMAL PERFUSION LUNG SCAN. NEGATIVE FOR PULMONARY EMBOLI. Assessment & Plan - Diagnosis (1) Anemia Qualifiers: Anemia type: unspecified type Qualified Code(s): D64.9 - Anemia, unspecified Is this a current diagnosis for this admission?: YesPlan: He has a history of chronic anemia which I believe is multifactorial. His hemoglobin is worse now. He only had a small amount of bright red blood per rectum which is most likely from hemorrhoids. He will undergo an EGD and colonoscopy to rule out significant GI pathologies. (5) ESRD (end stage renal disease) on dialysis Is this a current diagnosis for this admission?: Yes (6) Rectal bleed Is this a current diagnosis for this admission?: Yes
--- NOTE | 2016-07-09 19:24 | Operative Report ---
Operative Report DATE OF SURGERY: 07/09/16 Operative Report: Pre-op diagnosis: Anemia and rectal bleeding Post-op diagnosis: 1. Normal EGD 2. Pancolonic diverticulosis Surgery: Upper endoscopy and Colonoscopy Medications: Versed 1mg, Fentanyl 50 mcg IV push Tissue removed: None Procedure: After informed consent obtained from patient, patient's pharynx was sprayed with Hurricane and conscious sedation was achieved. The upper endoscope was then inserted into the esophagus under direct vision and advanced into the stomach and further into the duodenum. Detailed examination of the duodenum, stomach and the esophagus was then performed. A digital rectal examination was performed and this was unremarkable. The colonoscope was inserted into the rectum and advanced to the cecum. The appendiceal orifice and the terminal ileum were both identified. The mucosa was examined into details as the colonoscope was slowly pulled out of the patient. The endoscope was retroflexed in the rectum. Patient tolerated the procedure well. Findings Esophagus: Normal Stomach: Normal Duodenum: Normal Terminal ileum: Normal Cecum: Some traumatic stretch lester of the colonic mucosa Ascending colon: Few diverticuli Transverse colon: Normal Descending colon: Multiple diverticuli Sigmoid colon: Multiple diverticuli Rectum: Normal except for internal hemorrhoids Plan: No GI explanation for anemia. OPERATION: .
[2016-07-09] MEDS ORDERED: INSULIN GLARGINE,HUM.REC.ANLOG 300 UNIT/3 ML INSULN.PEN SUBCUT SCH (22:00)
[2016-07-09] MEDS ORDERED: HEPARIN SOD (PORCINE) 1,000 UNIT/ML 1 ML VIAL IV PRN (22:00)
[2016-07-09] MEDS: NORMAL SALINE 1000 ML 1,000 ML IV PRN (23:24)
[2016-07-09] MEDS: CLONIDINE HCL 0.1 MG TABLET PO SCH (23:24)
[2016-07-10 05:57] LABS: ANION GAP 15 (5-19); BLOOD UREA NITROGEN 39 mg/dL (7-20); CALCIUM 8.2 mg/dL (8.4-10.2); CARBON DIOXIDE 27 mmol/L (22-30); CHLORIDE 95 mmol/L (98-107); GLUCOSE 125 mg/dL (75-110); POTASSIUM 3.8 mmol/L (3.6-5.0); SODIUM 137.2 mmol/L (137-145)
[2016-07-10 05:58] LABS: ABSOLUTE EOSINOPHILS # (AUTO) 0.2 10^3/uL (0.0-0.6); ABSOLUTE LYMPHOCYTES (AUTO) 0.9 10^3/uL (0.5-4.7); ABSOLUTE MONOCYTES (AUTO) 0.3 10^3/uL (0.1-1.4); ABSOLUTE NEUT (AUTO) 7.3 10^3/uL (1.7-8.2); BASOPHILS % (AUTO) 0.6 % (0-2); HEMATOCRIT 25.9 % (37.9-51.0); HEMOGLOBIN 8.2 g/dL (13.5-17.0); HGB HCT DIFFERENCE -1.3; LYMPHOCYTES % (AUTO) 10.3 % (13-45); MEAN CORPUSCULAR HEMOGLOBIN 24.8 pg (27.0-33.4); MEAN CORPUSCULAR HGB CONC 31.6 g/dL (32.0-36.0); MEAN CORPUSCULAR VOLUME 79 fl (80-97); RED BLOOD COUNT 3.29 10^6/uL (4.35-5.55); RED CELL DISTRIBUTION WIDTH 22.3 % (11.5-14.0); SEGMENTED NEUTROPHILS % (AUTO) 84.1 % (42-78); WHITE BLOOD COUNT 8.7 10^3/uL (4.0-10.5)
[2016-07-10] MEDS ORDERED: LANSOPRAZOLE 30 MG TAB.RAP.DR PO SCH (08:00)
[2016-07-10] MEDS: MAGNESIUM OXIDE 400 MG TABLET PO SCH (10:09)
[2016-07-10] MEDS: POTASSIUM CHLORIDE 10 MEQ TABLET.SA PO SCH (10:10)
[2016-07-10] MEDS: SERTRALINE HCL 50 MG TABLET PO SCH (10:10)
[2016-07-10] MEDS: AMLODIPINE BESYLATE 5 MG TABLET PO SCH (10:10)
--- NOTE | 2016-07-10 10:10 | Physician Advisory Note ---
Physician Advisor ProgressNote .: Pursuant to the [facility], I have reviewed the medical record for this patient. Physician Advisor Statement: Possible documentation opportunities if attending agrees: 1. "Anemia of acute blood loss due to acute GI bleed" [pt's last baseline Hgb was 9.5 on 12/10/2015, dropped to 6.7 w/sx of SOB & acute GI bleed on adm] 2. "Acute GI Bleed, possibly due to " [always need possible cause specified] 3. "Chronic Anemia of Chronic Kidney Dz" [need to specify which chronic dz is cause of chr anemia, whenever possible] 4. "mild hyponatremia, likely due to ___, resolved" [intravascular volume depletion?] Thanks for your help with documentation accuracy/specificity improvement! CK
[2016-07-10] MEDS: LACTOBACILLUS ACIDOPHILUS 250 MG TAB PO SCH (10:11)
[2016-07-10] MEDS: LORATADINE 10 MG TABLET PO SCH (10:11)
[2016-07-10] MEDS: FINASTERIDE 5 MG TABLET PO SCH (10:11)
[2016-07-10] MEDS: CINACALCET HCL 30 MG TABLET PO SCH (10:11)
[2016-07-10] MEDS: ATENOLOL 50 MG TABLET PO SCH (10:11)
--- NOTE | 2016-07-10 13:21 | PDOC PROGRESS REPORT ---
Subjective Progress Note for:: 07/10/16 Subjective:: Patient was seen in the hospital today. He is doing lots better. His breathing is better. His stools are clearing of melena. He denies any history of chest pain palpitations abdominal pains. Undergoing peritoneal dialysis without any issues. He has had upper GI endoscopy and colonoscopy yesterday which did not show any evidence of GI bleed. He has pandiverticulosis without any evidences of diverticulitis. Physical Exam Vital Signs: Temp Pulse Resp BP Pulse Ox 97.5 F 74 22 H 154/97 H 100 07/10/16 11:29 07/10/16 11:29 07/10/16 11:29 07/10/16 11:29 07/10/16 11:29 Intake & Output 07/09/16 07/10/16 07/11/16 06:59 06:59 06:59 Intake Total 5951 4520 2620 Output Total 4400 2000 2000 Balance 1551 2520 620 Weight 89.5 kg 92.3 kg General appearance: PRESENT: no acute distress Respiratory exam: PRESENT: clear to auscultation collin, decreased breath sounds. ABSENT: crackles Cardiovascular exam: PRESENT: +S1, +S2, systolic murmur GI/Abdominal exam: PRESENT: distended, firm - from PD fluid, soft. ABSENT: organomegaly, rigid, tenderness Results Laboratory Results: 07/10/16 05:12 07/10/16 05:12 07/10/16 07/10/16 05:12 05:12 WBC 8.7 RBC 3.29 L Hgb 8.2 L Hct 25.9 L MCV 79 L MCH 24.8 L MCHC 31.6 L RDW 22.3 H Plt Count 172 Seg Neutrophils % 84.1 H Lymphocytes % 10.3 L Monocytes % 3.0 Eosinophils % 2.0 Basophils % 0.6 Absolute Neutrophils 7.3 Absolute Lymphocytes 0.9 Absolute Monocytes 0.3 Absolute Eosinophils 0.2 Absolute Basophils 0.0 Sodium 137.2 Potassium 3.8 Chloride 95 L Carbon Dioxide 27 Anion Gap 15 BUN 39 H Creatinine 6.80 H Est GFR ( Amer) 10 L Est GFR (Non-Af Amer) 8 L Glucose 125 H Calcium 8.2 L Impressions: Chest X-Ray 07/08/16 07:25 IMPRESSION: Low lung volumes, portable film. No gross acute findings Soft Tissue Neck X-Ray 07/08/16 08:43 IMPRESSION: NEGATIVE STUDY OF THE SOFT TISSUES OF THE NECK. No plain film findings to explain history of upper airway wheezing. Results discussed with PAUL Cyr in the emergency room Soft Tissue Neck CT 07/08/16 11:26 IMPRESSION: NO SIGNIFICANT FINDING IN THE SOFT TISSUES OF THE NECK. Lung Scan-VQ NM 07/09/16 00:00 IMPRESSION: NORMAL PERFUSION LUNG SCAN. NEGATIVE FOR PULMONARY EMBOLI. Assessment & Plan - Diagnosis (1) Acute blood loss anemia Plan: Hemoglobin stable. Negative endoscopic evaluations. Most likely AVM. Will continue on erythropoietin.We will order iron studies as well today to see if he needs any iron replacements. (2) Dyspnea Qualifiers: Dyspnea type: dyspnea on exertion Qualified Code(s): R06.09 - Other forms of dyspnea Is this a current diagnosis for this admission?: Yes (3) ESRD (end stage renal disease) on dialysis Is this a current diagnosis for this admission?: YesPlan: Undergoing peritoneal dialysis without any issues. Needs to follow-up with his vascular surgeon for declotting of his AV fistula once he gets home. (4) Rectal bleed Is this a current diagnosis for this admission?: Yes (6) Hypertension Qualifiers: Hypertension type: essential hypertension Qualified Code(s): I10 - Essential (primary) hypertension Is this a current diagnosis for this admission?: YesPlan: Stable (7) Peritoneal dialysis status Is this a current diagnosis for this admission?: Yes
--- NOTE | 2016-07-10 13:50 | PDOC DISCHARGE SUMMARY ---
General - Admit/Disc Date/PCP Admission Date/Primary Care Provider: 07/08/16 13:56 Discharge Date: 07/10/16 - Discharge Diagnosis (1) Anemia Is this a current diagnosis for this admission?: YesSummary: Patient's has had no futher melena. Hgb has been stable. (2) Dyspnea Is this a current diagnosis for this admission?: YesSummary: Improved with transfusion. Peritoneal dialysis. VQ scan is negative (3) ESRD (end stage renal disease) on dialysis Is this a current diagnosis for this admission?: YesSummary: Continue peritoneal dialysis. Follow up with refrigeration houseman, Dr Burdick and vascular surgeon for declotting of fistula (4) Rectal bleed Is this a current diagnosis for this admission?: YesSummary: No further bleeding. EGD and colonoscopy showed no active bleeding. Pandiverticulosis, may have had small diverticuli bleed that has resolved (5) Hypertension Is this a current diagnosis for this admission?: Yes (6) Peritoneal dialysis status Is this a current diagnosis for this admission?: Yes - Additional Information Resuscitation Status: Full Code Home Medications: Amlodipine Besylate [Norvasc 5 mg Tablet] 5 mg PO DAILYP PRN 07/08/16 Atenolol [Tenormin] 25 mg PO DAILYP PRN 07/08/16 B Complex & C No.20/Folic Acid [Renal Caps Softgel] 1 mg PO DAILY 07/08/16 Calcitriol [Rocaltrol 0.25 mcg Capsule] 0.25 mcg PO MOFR 07/08/16 Cinacalcet HCl [Sensipar 30 mg Tablet] 30 mg PO DAILY 07/08/16 Epoetin Bk [Procrit Inj 20,000 Unit/1 ml Vial (Renal)] 20,000 units INJ ASDIR PRN 07/08/16 Esomeprazole Magnesium [Nexium 24Hr] 20 mg PO DAILY 07/08/16 Finasteride [Proscar 5 mg Tablet] 5 mg PO DAILY 07/08/16 Folic Acid/Vitamin B Comp W-C [Nephrocaps Multiple Vitamin Capsule] 1 cap PO DAILY 07/08/16 Insulin Glargine,Hum.rec.anlog [Lantus Insulin 100 Unit/1 ml 10 ml] 20 units SQ HSP PRN 07/08/16 Lactobacillus Acidophilus [Probiotic] 1 cap PO DAILY 07/08/16 Loperamide HCl [Imodium 2 mg Capsule] 2 mg PO Q6HP PRN 07/08/16 Loratadine [Claritin 10 mg Tablet] 10 mg PO DAILY 07/08/16 Magnesium Oxide [Mag-Ox 400 mg Tablet] 400 mg PO Q12 07/08/16 Potassium Chloride [K-Tab ER] 20 meq PO DAILY 07/08/16 Sertraline HCl [Zoloft 50 mg Tablet] 50 mg PO DAILY 07/08/16 History of Present Illness History of Present Illness: VERNELL DOVE is a 75 year old male who presents to [facility] emergency department, with complaints of increasing shortness breath over the last week and rectal bleeding occurred earlier this am. Patient is an end-stage renal disease patient on peritoneal dialysis for the last 4 years. He is presently in the process of transitioning to hemodialysis. He states he began having shortness of breath that started a week ago. He denies any cough or sputum production. He denies any fevers or chills. He was seen by his primary care provider last Thursday. He was sent for a chest xray which was unremarkable. He had labs drawn in the dialysis center on Thursday and he was called yesterday with a drop in hemoglobin to 6.9. He was advised to go to the emergency department. His states he had a dark stool this morning with some crissy rectal blood. They therefore came into the emergency department. He denies any nausea, vomiting, abdominal pain, or hematemesis. Patient states he believes he had an ulcer in the past, and has been on Nexium for quite a long time. He does have a history of chronic anemia due to his long-standing end- stage renal disease. His baseline hemoglobin he believes is around 9. He denies any chest pain, dizziness, or lightheadedness. He has had no further bleeding since his arrival. Hospital Course Hospital Course: Patient was admitted to [facility] on telemetry. Consults were placed for Dr Burdick from nephrology and Dr Patton from gastroenterology. VQ scan was done to rule out PE as source of dyspnea. Patient was transfused 2 units of PRBCs. He was prepped for colonoscopy and EGD for the following day. He continued his own periotoneal dialysis schedule. He underwent EGD and colonoscopy on 07/[address] Patton which showed no active bleeding. Pandiverticulosis with no diverticulitis. Today he feels much improved and ready for discharge Physical Exam Vital Signs: Temp Pulse Resp BP Pulse Ox 97.5 F 74 22 H 154/97 H 100 07/10/16 11:29 07/10/16 11:29 07/10/16 11:29 07/10/16 11:29 07/10/16 11:29 Intake & Output 07/09/16 07/10/16 07/11/16 06:59 06:59 06:59 Intake Total 5951 4520 2620 Output Total 4400 1999 1999 Balance 1551 2520 620 Weight 89.5 kg 92.3 kg General appearance: PRESENT: no acute distress, obese, well-developed, well- nourished Head exam: PRESENT: atraumatic, normocephalic Eye exam: PRESENT: conjunctival injection Ear exam: PRESENT: normal external ear exam Mouth exam: PRESENT: moist, tongue midline Neck exam: ABSENT: carotid bruit, JVD, lymphadenopathy, thyromegaly Respiratory exam: PRESENT: clear to auscultation collin. ABSENT: rales, rhonchi, wheezes Cardiovascular exam: PRESENT: RRR. ABSENT: diastolic murmur, rubs, systolic murmur Pulses: PRESENT: normal dorsalis pedis pul Vascular exam: PRESENT: normal capillary refill GI/Abdominal exam: PRESENT: normal bowel sounds, soft. ABSENT: distended, guarding, mass, organolmegaly, rebound, tenderness Rectal exam: PRESENT: deferred Extremities exam: PRESENT: full ROM. ABSENT: calf tenderness, clubbing, pedal edema Neurological exam: PRESENT: alert, awake, oriented to person, oriented to place , oriented to time, oriented to situation, CN II-XII grossly intact. ABSENT: motor sensory deficit Psychiatric exam: PRESENT: appropriate affect, normal mood. ABSENT: homicidal ideation, suicidal ideation Skin exam: PRESENT: dry, intact, warm. ABSENT: cyanosis, rash Results Laboratory Results: 07/10/16 05:12 07/10/16 05:12 07/10/16 07/10/16 05:12 05:12 WBC 8.7 RBC 3.29 L Hgb 8.2 L Hct 25.9 L MCV 79 L MCH 24.8 L MCHC 31.6 L RDW 22.3 H Plt Count 172 Seg Neutrophils % 84.1 H Lymphocytes % 10.3 L Monocytes % 3.0 Eosinophils % 2.0 Basophils % 0.6 Absolute Neutrophils 7.3 Absolute Lymphocytes 0.9 Absolute Monocytes 0.3 Absolute Eosinophils 0.2 Absolute Basophils 0.0 Sodium 137.2 Potassium 3.8 Chloride 95 L Carbon Dioxide 27 Anion Gap 15 BUN 39 H Creatinine 6.80 H Est GFR ( Amer) 10 L Est GFR (Non-Af Amer) 8 L Glucose 125 H Calcium 8.2 L Impressions: Chest X-Ray 07/08/16 07:25 IMPRESSION: Low lung volumes, portable film. No gross acute findings Soft Tissue Neck X-Ray 07/08/16 08:43 IMPRESSION: NEGATIVE STUDY OF THE SOFT TISSUES OF THE NECK. No plain film findings to explain history of upper airway wheezing. Results discussed with PAUL Cyr in the emergency room Soft Tissue Neck CT 07/08/16 11:26 IMPRESSION: NO SIGNIFICANT FINDING IN THE SOFT TISSUES OF THE NECK. Lung Scan-VQ NM 07/09/16 00:00 IMPRESSION: NORMAL PERFUSION LUNG SCAN. NEGATIVE FOR PULMONARY EMBOLI. Qualifiers PATEINT BEING DISCHARGED WITH ANY OF THE FOLLOWING DIAGNOSIS?: No Plan Discharge Plan: Home with Time Spent: Less than 30 Minutes
[2016-07-10] MEDS ORDERED: EPOETIN ALFA INJ 20000 UNIT/1 ML VIAL (RENAL) INJ PRN (14:05)
[2016-07-10 15:37] LABS: FOLATE > 20.00 ng/mL (>2.76)
[2016-07-10 16:14] VITALS: BP 148/85
[2016-07-10] MEDS ORDERED: BUDESONIDE/FORMOTEROL 160-4.5 MCG 60 PUFF/6 GM MDI IH SCH (22:00)
[2016-07-11] MEDS ORDERED: CALCITRIOL 0.25 MCG CAPSULE PO SCH ×2 (08:58→10:00)
[2016-07-11] MEDS ORDERED: FOLIC ACID/VITAMIN B COMP W-C CAPSULE PO SCH (10:00)
== END 2016-07-10 17:04 | disposition home or self-care (01) | DRG 377 ==
LOC: ER 07:06 → EH 13:56 → UNDOADMIN 14:17 → EH 14:17 → 3S 16:08
PROVIDERS: ADMIT Family Medicine; ATTEND Family Medicine
PROC: 30233N1 Transfusion of Nonautologous Red Blood Cells into Peripheral Vein, Percutaneous Approach (ICD-10-PCS; 2016-07-08)
PROC: 0DJ08ZZ Inspection of Upper Intestinal Tract, Via Natural or Artificial Opening Endoscopic (ICD-10-PCS; principal; 2016-07-09 18:00)
PROC: 0DJD8ZZ Inspection of Lower Intestinal Tract, Via Natural or Artificial Opening Endoscopic (ICD-10-PCS; 2016-07-09 18:00)
DX: K57.31 Diverticulosis of large intestine without perforation or abscess with bleeding (principal); N18.6 End stage renal disease; D62 Acute posthemorrhagic anemia; I12.0 Hypertensive chronic kidney disease with stage 5 chronic kidney disease or end stage renal disease; G47.30 Sleep apnea, unspecified; K21.9 Gastro-esophageal reflux disease without esophagitis; K64.8 Other hemorrhoids; Z79.4 Long term (current) use of insulin; E83.42 Hypomagnesemia; Z99.2 Dependence on renal dialysis; Z82.49 Family history of ischemic heart disease and other diseases of the circulatory system; D63.1 Anemia in chronic kidney disease; E11.22 Type 2 diabetes mellitus with diabetic chronic kidney disease; Z79.899 Other long term (current) drug therapy; Z95.9 Presence of cardiac and vascular implant and graft, unspecified; Z87.891 Personal history of nicotine dependence
CPT/HCPCS: 36415; 36430; 43235; 45378; 70360; 70490; 71010; 78582; 80048; 80053; 82272; 82550; 82553; 82607; 82728; 82746; 82962; 83540; 83550; 83735; 84100; 84466; 84484; 85025; 85045; 86850; 86900; 86901; 86920; 90947; 93005; 93010; 94640; 94660; 96374; 99285; A9540; A9567; J0171; J1610; J1815; J2250; J2310; J2550; J2930; J3010; J3475; J3490; J7030; P9016; Q9969; S0164

== ENCOUNTER 2016-07-28 18:28 | Inpatient (IN) | payer MEDICARE, OTHER ==
[2016-07-28] MEDS ORDERED: IPRATROPIUM/ALBUTEROL 0.5-2.5 MG/3 ML AMPUL NEB ONE ×3 (18:45→20:46)
[2016-07-28] MEDS ORDERED: ALBUTEROL SULFATE 0.083% NEB 2.5 MG/3 ML AMPUL NEB ONE ×3 (18:45→20:46)
[2016-07-28] MEDS ORDERED: METHYLPREDNISOLONE INJ 125 MG/2 ML SDV IV ONE (18:55)
--- NOTE | 2016-07-28 18:57 | ER Document Report ---
ED Respiratory Problem - General Stated Complaint: DIFFICULTY BREATHING Time seen by provider: 18:57 Mode of Arrival: Ambulatory Information source: Patient, Relative TRAVEL OUTSIDE OF THE [place] IN LAST 30 DAYS: No - HPI Patient complains to provider of: Cough, Short of breath Onset: Other - Worsening over 2 weeks Duration: Worse/persistent Quality of pain: No pain Short of Breath: Moderate Chest pain/discomfort: Tightness Cough: Nonproductive Associated symptoms: Difficulty breathing, Short of breath Similar symptoms previously: Yes Recently seen / treated by doctor: Yes Notes: Patient is a 75-year-old male on peritoneal dialysis who presents to the emergency room complaining of difficulty breathing that has been worsening over the past 2 weeks, he has a nonproductive cough, no fever, no chest pain, his spouse at bedside reports that he has not missed out on any of his peritoneal dialysis treatments, he is a former smoker - Related Data Allergies/Adverse Reactions: No Known Allergies Allergy (Verified 09/02/15 07:02) Past Medical History - General Information source: Patient, Relative - Social History Smoking Status: Former Smoker Family History: Reviewed & Not Pertinent - Past Medical History Cardiac Medical History: Reports: Hx Hypertension Denies: Hx Atrial Fibrillation, Hx Congestive Heart Failure, Hx Coronary Artery Disease, Hx Heart Attack, Hx Hypercholesterolemia, Hx Peripheral Vascular Disease, Hx Pulmonary Embolism, Hx Heart Murmur Pulmonary Medical History: Reports: Hx Sleep Apnea Denies: Hx Asthma, Hx Bronchitis, Hx COPD, Hx Pneumonia, Hx Respiratory Failure, Hx Tuberculosis Neurological Medical History: Denies: Hx Cerebrovascular Accident, Hx Seizures Endocrine Medical History: Reports: Hx Diabetes Mellitus Type 2. Denies: Hx Graves' Disease, Hx Hyperthyroidism, Hx Hypothyroidism Renal/ Medical History: Reports: Hx End Stage Renal Disease, Hx Peritoneal Dialysis GI Medical History: Reports: Hx Gastroesophageal Reflux Disease, Hx Ulcer Psychiatric Medical History: Reports: Hx Depression Past Surgical History: Reports: Hx Abdominal Surgery - HERNIA, Hx Inguinal Hernia, Hx Thyroid Surgery - Parathyroid, Hx Vascular Surgery - Fistula and peritoneal dialysis catheter. Denies: Hx Colostomy, Hx Pacemaker - Immunizations Hx Diphtheria, Pertussis, Tetanus Vaccination: No Hx Pneumococcal Vaccination: 01/04/12 Review of Systems - Review of Systems Constitutional: No symptoms reported EENT: No symptoms reported Cardiovascular: No symptoms reported Respiratory: See HPI Gastrointestinal: No symptoms reported Genitourinary: No symptoms reported Male Genitourinary: No symptoms reported Musculoskeletal: No symptoms reported Skin: No symptoms reported Hematologic/Lymphatic: No symptoms reported Neurological/Psychological: No symptoms reported -: Yes All other systems reviewed and negative Physical Exam - Vital signs Vitals: Resp 40 H 07/28/16 18:51 Interpretation: Tachypneic - General General appearance: Alert In distress: Moderate - HEENT Head: Normocephalic, Atraumatic Eyes: Normal Conjunctiva: Injected Extraocular movements intact: Yes Eyelashes: Normal Pupils: PERRL - Respiratory Respiratory status: Respiratory distress, Pursed lip breathing, Tachypnea Chest status: Nontender Breath sounds: Decreased air movement, Wheezing Chest palpation: Normal - Cardiovascular Rhythm: Regular Heart sounds: Normal auscultation Murmur: No - Abdominal Inspection: Normal, Other - Peritoneal dialysis catheter in place Distension: Distended Bowel sounds: Normal Tenderness: Nontender Organomegaly: No organomegaly - Back Back: Normal, Nontender - Extremities General upper extremity: Normal inspection, Nontender, Normal color, Normal ROM , Normal temperature General lower extremity: Normal inspection, Nontender, Normal color, Normal ROM , Normal temperature. No: Mendy's sign - Neurological Neuro grossly intact: Yes Cognition: Normal Orientation: AAOx4 H[place] Coma Scale Eye Opening: Spontaneous [place] Coma Scale Verbal: Oriented Aldo Coma Scale Motor: Obeys Commands Aldo Coma Scale Total: 15 Speech: Normal Motor strength normal: LUE, RUE, LLE, RLE Sensory: Normal - Psychological Associated symptoms: Normal affect, Normal mood - Skin Skin Temperature: Warm Skin Moisture: Dry Skin Color: Normal Skin irregularity: other - Multiple diffuse keloids scarring Course - Re-evaluation Re-evalutation: 07/28/16 22:45 Patient was discussed with on-call manager agricultural, Dr. Santana, requested peritoneal dialysis orders, Dr. Santana was transferred to the nurse in charge of patient for these orders 07/29/16 03:32 Patient was discussed with the hospitalist for admission, he requested that peritoneal fluid be sent off for analysis to rule out SBP, I explained that patient has no abdominal pain nor abdominal tenderness, however given patient's white blood cell count this request was obliged 07/29/16 06:11 Patient was once again discussed with the hospitalist who agrees to admit for further evaluation and treatment - Vital Signs Vital signs: Temp Pulse Resp BP Pulse Ox 22 H 142/100 H 99 07/29/16 05:01 07/29/16 05:01 07/29/16 05:01 - Laboratory Result Diagrams: 07/28/16 18:47 07/28/16 18:47 Laboratory results interpreted by me: 07/28/16 07/28/16 07/28/16 18:47 18:47 20:05 WBC 15.6 H RBC 4.04 L Hgb 10.0 L Hct 32.4 L MCH 24.8 L MCHC 31.0 L RDW 23.0 H Seg Neuts % (Manual) 88 H Band Neutrophils % 2 L Lymphocytes % (Manual) 2 L Abs Neuts (Manual) 14.0 H APTT 40.3 H Chloride 91 L Anion Gap 23 H BUN 32 H Creatinine 6.71 H Est GFR ( Amer) 10 L Est GFR (Non-Af Amer) 8 L Glucose 217 H Alkaline Phosphatase 162 H - Diagnostic Test Radiology reviewed: Image reviewed, Reports reviewed - EKG Interpretation by Me EKG shows normal: Sinus rhythm Rate: Normal Rhythm: NSR - Transfer of Care Care transferred to following provider: Dr. Carbajal Critical Care Note - Critical Care Note Total time excluding time spent on procedures (mins): 60 Comments: Patient arrived in respiratory distress with tachypnea and diffuse wheezing, requiring multiple breathing treatments, cardiac monitoring with close observation and admission to the hospital service Discharge - Discharge Clinical Impression: upper airway infection, Difficulty breathing, ESRD (end stage renal disease) on dialysis Condition: Fair Disposition: ADMITTED INPATIENT Admitting Provider: Hospitalist Unit Admitted: Telemetry
[2016-07-28 20:03] LABS: HEMATOCRIT 32.4 % (37.9-51.0); HGB HCT DIFFERENCE -2.4; MEAN CORPUSCULAR HEMOGLOBIN 24.8 pg (27.0-33.4); MEAN CORPUSCULAR VOLUME 80 fl (80-97); RED BLOOD COUNT 4.04 10^6/uL (4.35-5.55); WHITE BLOOD COUNT 15.6 10^3/uL (4.0-10.5)
[2016-07-28 20:14] LABS: ALANINE AMINOTRANSFERASE 31 U/L (21-72); ALBUMIN 3.7 g/dL (3.5-5.0); ALKALINE PHOSPHATASE 162 U/L (38-126); ASPARTATE AMINO TRANSFERASE 23 U/L (17-59); BILIRUBIN,TOTAL 0.8 mg/dL (0.2-1.3); BLOOD UREA NITROGEN 32 mg/dL (7-20); CALCIUM 8.9 mg/dL (8.4-10.2); CREATINE KINASE 143 U/L (55-170); CREATININE RESULT 6.71 mg/dL (0.52-1.25); GLUCOSE 217 mg/dL (75-110); TOTAL PROTEIN 7.1 g/dL (6.3-8.2)
[2016-07-28 20:21] LABS: BAND NEUTROPHILS % (MANUAL) 2 % (3-5); BASOPHILS % (MANUAL) 0 % (0-2); EOSINOPHILS % (MANUAL) 1 % (0-6); LYMPHOCYTES % (MANUAL) 2 % (13-45); TOTAL CELLS COUNTED 100
[2016-07-28 20:25] LABS: ANISOCYTOSIS 2+; HYPOCHROMASIA 1+; OVALOCYTES SLIGHT; POIKILOCYTOSIS SLIGHT; POLYCHROMASIA SLIGHT
[2016-07-28 20:26] LABS: CREATINE KINASE MB 3.61 ng/mL (<4.55); TROPONIN I 0.012 ng/mL
[2016-07-28 20:27] LABS: ANION GAP 23 (5-19); CARBON DIOXIDE 26 mmol/L (22-30); CHLORIDE 91 mmol/L (98-107); POTASSIUM 4.1 mmol/L (3.6-5.0)
[2016-07-28 20:35] LABS: PROTHROMBIN TIME 14.3 SEC (11.4-15.4)
[2016-07-28 20:36] LABS: PARTIAL THROMBOPLASTIN TIME 40.3 SEC (23.5-35.8)
--- NOTE | 2016-07-28 20:55 | ER Document Report ---
ED Medical Screen (RME) - General Chief Complaint: Breathing Difficulty Stated Complaint: DIFFICULTY BREATHING Time seen by provider: 18:30 Mode of Arrival: Wheelchair Information source: Relative Notes: 75 yo in severe respiratory arrest with tachypnea of 48-50, not moving much air by auscultation, pulse 0x 87%, admitted for resp distress mid . Perotoneal dialysis daily last at 5 pm. He was relunctant to come to ER but made him come because he couldn'tr breath. Taken to trauma 2. TRAVEL OUTSIDE OF THE [place] IN LAST 30 DAYS: No - Related Data Allergies/Adverse Reactions: No Known Allergies Allergy (Verified 09/02/15 07:02) Past Medical History - Social History Chew tobacco use (# tins/day): No Frequency of alcohol use: None Drug Abuse: None - Past Medical History Cardiac Medical History: Reports: Hx Hypertension Denies: Hx Atrial Fibrillation, Hx Congestive Heart Failure, Hx Coronary Artery Disease, Hx Heart Attack, Hx Hypercholesterolemia, Hx Peripheral Vascular Disease, Hx Pulmonary Embolism, Hx Heart Murmur Pulmonary Medical History: Reports: Hx Sleep Apnea Denies: Hx Asthma, Hx Bronchitis, Hx COPD, Hx Pneumonia, Hx Respiratory Failure, Hx Tuberculosis Neurological Medical History: Denies: Hx Cerebrovascular Accident, Hx Seizures Endocrine Medical History: Reports: Hx Diabetes Mellitus Type 2. Denies: Hx Graves' Disease, Hx Hyperthyroidism, Hx Hypothyroidism Renal/ Medical History: Reports: Hx End Stage Renal Disease, Hx Peritoneal Dialysis GI Medical History: Reports: Hx Gastroesophageal Reflux Disease, Hx Ulcer Psychiatric Medical History: Reports: Hx Depression Past Surgical History: Reports: Hx Abdominal Surgery - HERNIA, Hx Inguinal Hernia, Hx Thyroid Surgery - Parathyroid, Hx Vascular Surgery - Fistula and peritoneal dialysis catheter. Denies: Hx Colostomy, Hx Pacemaker - Immunizations Hx Diphtheria, Pertussis, Tetanus Vaccination: No Physical Exam - Vital signs Vitals: Resp 40 H 07/28/16 18:51 Course - Vital Signs Vital signs: Temp Pulse Resp BP Pulse Ox 33 H 154/85 H 97 07/28/16 20:43 07/28/16 20:43 07/28/16 20:43 - Laboratory Result Diagrams: 07/28/16 18:47 07/28/16 18:47 Laboratory results interpreted by me: 07/28/16 07/28/16 07/28/16 18:47 18:47 20:05 WBC 15.6 H RBC 4.04 L Hgb 10.0 L Hct 32.4 L MCH 24.8 L MCHC 31.0 L RDW 23.0 H Seg Neuts % (Manual) 88 H Band Neutrophils % 2 L Lymphocytes % (Manual) 2 L Abs Neuts (Manual) 14.0 H APTT 40.3 H Chloride 91 L Anion Gap 23 H BUN 32 H Creatinine 6.71 H Est GFR ( Amer) 10 L Est GFR (Non-Af Amer) 8 L Glucose 217 H Alkaline Phosphatase 162 H
[2016-07-28] MEDS ORDERED: VANCOMYCIN HCL INJ 1000 MG VIAL IV ONE (23:26)
[2016-07-29] MEDS ORDERED: ALBUTEROL SULFATE 0.083% NEB 2.5 MG/3 ML AMPUL NEB ONE (01:54)
[2016-07-29 03:30] LABS: FLUID TYPE PERITONEAL
[2016-07-29 03:31] LABS: FLUID APPEARANCE CLEAR
[2016-07-29 03:42] LABS: FLUID RBC DILUENT USED NONE USED; FLUID RBC DILUTION FACTOR 1; FLUID RBC SIDE 1 0; FLUID RBC SIDE 2 0; TOTAL RBC SQUARES COUNTED FLD 225
[2016-07-29] MEDS ORDERED: METHYLPREDNISOLONE INJ 125 MG/2 ML SDV IV ONE (05:40)
[2016-07-29] MEDS ORDERED: (PENDING PHARMACY ID) (Atenolol [Tenormin] 25 MG) PO PRN (05:41)
[2016-07-29] MEDS ORDERED: ACETAMINOPHEN 325 MG TABLET PO PRN (05:41)
[2016-07-29] MEDS ORDERED: AMLODIPINE BESYLATE 5 MG TABLET PO PRN (05:41)
[2016-07-29] MEDS ORDERED: DEXTROSE 50%-WATER 25 GM/50 ML DISP.SYRIN IV PRN ×2 (05:42)
[2016-07-29] MEDS ORDERED: GLUCAGON,HUMAN RECOMB 1 MG INJ IM PRN (05:42)
[2016-07-29] MEDS ORDERED: DEXTROSE 40% GEL 15 GM TUBE PO PRN ×2 (05:42)
[2016-07-29] MEDS ORDERED: FLUTICASONE NASAL SPRAY 50 MCG/SPRY 120 SPRAY/16 GM NASL SCH (05:45)
[2016-07-29] MEDS ORDERED: HEPARIN SOD (PORCINE) 5,000 UNIT/ML 1 ML SYRINGE SUBCUT SCH (06:00)
[2016-07-29] MEDS ORDERED: LANSOPRAZOLE 15 MG TAB.RAP.DR PO SCH (06:15)
[2016-07-29 07:04] LABS: HEMATOCRIT 25.8 % (37.9-51.0); HEMOGLOBIN 8.1 g/dL (13.5-17.0); HGB HCT DIFFERENCE -1.5; MEAN CORPUSCULAR HEMOGLOBIN 24.9 pg (27.0-33.4); MEAN CORPUSCULAR HGB CONC 31.4 g/dL (32.0-36.0); MEAN CORPUSCULAR VOLUME 80 fl (80-97); RED BLOOD COUNT 3.25 10^6/uL (4.35-5.55); WHITE BLOOD COUNT 17.4 10^3/uL (4.0-10.5)
[2016-07-29 07:37] LABS: BASOPHILS % (MANUAL) 0 % (0-2); EOSINOPHILS % (MANUAL) 0 % (0-6); LYMPHOCYTES % (MANUAL) 1 % (13-45); TOTAL CELLS COUNTED 100
[2016-07-29 07:38] LABS: ANISOCYTOSIS 3+; HYPOCHROMASIA SLIGHT; MICROCYTOSIS SLIGHT; OVALOCYTES 1+; POIKILOCYTOSIS 1+; POLYCHROMASIA SLIGHT; TOXIC VACUOLATION PRESENT
[2016-07-29] MEDS: CLINDAMYCIN 900 MG/D5W RTU 50 ML IV SCH ×2 (07:50→13:25)
--- NOTE | 2016-07-29 08:05 | PDOC H&P ---
History of Present Illness Admission Date/PCP: 07/29/16 05:43 MERARY PADILLA NP Patient complains of: Shortness of breath History of Present Illness: VERNELL DOVE is a 75 year old male with a past medical history of end-stage renal failure on peritoneal dialysis with Dr. Burdick. Who had been in his usual state of health until approximately 12 hours prior to presentation developing shortness of breath notable for upper airway wheezing and rhonchi, right sided submandibular pain and sore throat, without drooling. Denying painful dentition. He denies chest or abdominal pain, nausea vomiting, previous episode or infectious contacts. In the emergency room his found to have a respiratory rate in the 40s and upper airway rhonchi he receives Solu- Medrol and vancomycin 1 and referred to the hospitalist for admission. Past Medical History Cardiac Medical History: Reports: Hypertension Denies: Atrial Fibrillation, Congestive Heart Failure, Coronary Artery Disease, Myocardial Infarction, Hyperlipidema, Peripheral Vascular Disease, Pulmonary Embolism, Heart Murmur Pulmonary Medical History: Reports: Sleep Apnea Denies: Asthma, Bronchitis, Chronic Obstructive Pulmonary Disease (COPD), Pneumonia, Respiratory Failure, Tuberculosis Neurological Medical History: Denies: Seizures Endocrine Medical History: Reports: Diabetes Mellitus Type 2 Denies: Hyperthyroidism, Hypothyroidism Renal/ Medical History: Reports: End Stage Renal Disease Malignancy Medical History: Denies: Breast Cancer, Cervical Cancer, Ovarian Cancer GI Medical History: Reports: Gastroesophageal Reflux Disease Psychiatric Medical History: Reports: Depression Hematology: Reports: Anemia - blood transfusion few times Denies: Hemophilia, Sickle Cell Disease Past Surgical History Past Surgical History: Reports: Vascular Surgery - Fistula and peritoneal dialysis catheter Denies: Colostomy, Pacemaker Social History Information Source: Patient, Relative Lives with: Family Smoking Status: Former Smoker Frequency of Alcohol Use: None Hx Recreational Drug Use: No Drugs: None Hx Prescription Drug Abuse: No Family History Family History: Hypertension Parental Family History Reviewed: Yes Children Family History Reviewed: Yes Sibling(s) Family History Reviewed.: Yes Medication/Allergy Allergies/Adverse Reactions: No Known Allergies Allergy (Verified 09/02/15 07:02) Review of Systems Constitutional: ABSENT: chills, fever(s), headache(s), weight gain, weight loss Eyes: ABSENT: visual disturbances Ears: ABSENT: hearing changes Cardiovascular: ABSENT: chest pain, dyspnea on exertion, edema, orthropnea, palpitations Respiratory: ABSENT: cough, hemoptysis Gastrointestinal: ABSENT: abdominal pain, constipation, diarrhea, hematemesis, hematochezia, nausea, vomiting Genitourinary: ABSENT: dysuria, hematuria Musculoskeletal: ABSENT: joint swelling Integumentary: ABSENT: rash, wounds Neurological: ABSENT: abnormal gait, abnormal speech, confusion, dizziness, focal weakness, syncope Psychiatric: ABSENT: anxiety, depression, homidical ideation, suicidal ideation Endocrine: ABSENT: cold intolerance, heat intolerance, polydipsia, polyuria Hematologic/Lymphatic: ABSENT: easy bleeding, easy bruising Physical Exam Vital Signs: Temp Pulse Resp BP Pulse Ox 87 30 H 150/101 H 95 07/29/16 07:24 07/29/16 07:19 07/29/16 07:24 07/29/16 07:19 Intake & Output 07/27/16 07/28/16 07/29/16 11:59 11:59 11:59 Intake Total 2500 Output Total 2800 Balance -300 General appearance: PRESENT: cooperative, mild distress, other - Chronically ill -appearing Head exam: PRESENT: atraumatic, normocephalic Eye exam: PRESENT: conjunctiva pink, EOMI, PERRLA. ABSENT: scleral icterus Ear exam: PRESENT: normal external ear exam Mouth exam: PRESENT: moist, neck supple, other - Right-sided submandibular fullness and tenderness Teeth exam: PRESENT: dental caries Neck exam: PRESENT: tenderness - Questionable cricoid tenderness. ABSENT: carotid bruit, JVD, lymphadenopathy, meningismus, thyromegaly Respiratory exam: PRESENT: accessory muscle use, clear to auscultation collin, rhonchi, symmetrical, tachypnea, other - Upper airway rhonchi only without drooling or stridor. ABSENT: decreased breath sounds, prolonged expiratory phas Cardiovascular exam: PRESENT: RRR. ABSENT: diastolic murmur, rubs, systolic murmur Pulses: PRESENT: normal dorsalis pedis pul Vascular exam: PRESENT: normal capillary refill GI/Abdominal exam: PRESENT: normal bowel sounds, soft. ABSENT: distended, guarding, mass, organolmegaly, rebound, tenderness Rectal exam: PRESENT: deferred Extremities exam: PRESENT: full ROM. ABSENT: calf tenderness, clubbing, pedal edema Neurological exam: PRESENT: alert, awake, oriented to person, oriented to place , oriented to time, oriented to situation, CN II-XII grossly intact. ABSENT: motor sensory deficit Psychiatric exam: PRESENT: appropriate affect, normal mood. ABSENT: homicidal ideation, suicidal ideation Skin exam: PRESENT: dry, intact, warm, other - Diffuse and extensive keloids throughout. ABSENT: cyanosis, rash Results Laboratory Results: 07/29/16 06:50 07/29/16 06:50 07/29/16 07/29/16 06:50 06:50 WBC 17.4 H RBC 3.25 L Hgb 8.1 L Hct 25.8 L MCV 80 MCH 24.9 L MCHC 31.4 L RDW 23.0 H Plt Count 179 Seg Neutrophils % Not Reportable Lymphocytes % Not Reportable Monocytes % Not Reportable Eosinophils % Not Reportable Basophils % Not Reportable Absolute Neutrophils Not Reportable Absolute Lymphocytes Not Reportable Absolute Monocytes Not Reportable Absolute Eosinophils Not Reportable Absolute Basophils Not Reportable Sodium Cancelled Potassium Cancelled Chloride Cancelled Carbon Dioxide Cancelled Anion Gap Cancelled BUN Cancelled Creatinine Cancelled Est GFR ( Amer) Cancelled Est GFR (Non-Af Amer) Cancelled Glucose Cancelled Calcium Cancelled Impressions: Chest X-Ray 07/28/16 18:50 IMPRESSION: No acute cardiopulmonary findings. Soft Tissue Neck X-Ray 07/29/16 00:00 IMPRESSION: Limited study as noted above. There is loss of definition of the epiglottis and the possibility of epiglottitis cannot be excluded. Clinical correlation is recommended. Other findings as noted above Assessment & Plan - Diagnosis (1) Epiglottitis Is this a current diagnosis for this admission?: YesPlan: IV Solu-Medrol and clindamycin with symptomatically management, x-rays of the neck are pending. Nothing by mouth pending improvement (2) Difficulty breathing Is this a current diagnosis for this admission?: YesPlan: Correction of #1 and symptomatically management resumption of Sedapap for obstructive sleep apnea (3) Peritoneal dialysis status Is this a current diagnosis for this admission?: YesPlan: Nephrology consulted - Time Time Spent: 50 to 70 Minutes
--- NOTE | 2016-07-29 08:05 | EKG REPORT ---
SEVERITY:- ABNORMAL ECG - SINUS RHYTHM BORDERLINE LEFT AXIS DEVIATION NONSPECIFIC T ABNORMALITIES, LATERAL LEADS : Confirmed by: Marc Steward MD 29-Jul-2016 08:04:28
[2016-07-29 08:29] LABS: BLOOD UREA NITROGEN 36 mg/dL (7-20); CALCIUM 8.5 mg/dL (8.4-10.2); CREATININE RESULT 6.87 mg/dL (0.52-1.25); GLUCOSE 322 mg/dL (75-110)
[2016-07-29 08:30] LABS: CARBON DIOXIDE 26 mmol/L (22-30); CHLORIDE 92 mmol/L (98-107); POTASSIUM 4.3 mmol/L (3.6-5.0)
[2016-07-29 08:37] LABS: SODIUM 137.8 mmol/L (137-145)
[2016-07-29 08:43] LABS: ANION GAP 20 (5-19)
[2016-07-29] MEDS: IPRATROPIUM/ALBUTEROL 0.5-2.5 MG/3 ML AMPUL NEB SCH ×2 (09:54→14:21)
[2016-07-29] MEDS ORDERED: LACTOBACILLUS ACIDOPHILUS PO SCH (10:00)
[2016-07-29] MEDS ORDERED: MAGNESIUM OXIDE 400 MG TABLET PO SCH (10:00)
[2016-07-29] MEDS ORDERED: CINACALCET HCL 30 MG TABLET PO SCH (10:00)
[2016-07-29] MEDS ORDERED: SERTRALINE HCL 50 MG TABLET PO SCH (10:00)
[2016-07-29] MEDS ORDERED: FINASTERIDE 5 MG TABLET PO SCH (10:00)
[2016-07-29] MEDS ORDERED: FOLIC ACID/VITAMIN B COMP W-C CAPSULE PO SCH (10:00)
[2016-07-29] MEDS: INSULIN LISPRO 100 UNIT/ML 3 ML VIAL SUBCUT PRN ×2 (14:00→17:30)
--- NOTE | 2016-07-29 14:19 | PDOC TRANSFER SUMMARY ---
General Admission Date/PCP: 07/29/16 05:43 MERARY PADILLA NP Transfer Date: 07/29/16 [facility] Accepting Physician: dr fitch Resuscitation Status: Full Code - Transfer Diagnosis (1) Airway obstruction Is this a current diagnosis for this admission?: YesDiagnosis Summary: unclear etiology. Patient has severe keloid disease and prior history of parathyroid resection raising the risk of scar tissue contributing to his airway obstruction. Other possibilities include epiglottitis for which he is receiving clindamycin and systemic steroids. Arrangements made for transfer to tertiary care center for ear nose and throat evaluation and direct laryngoscopy , continue BiPAP therapy as needed. (2) ESRD (end stage renal disease) on dialysis Is this a current diagnosis for this admission?: YesDiagnosis Summary: Continue usual home peritoneal dialysis (3) Epiglottitis Is this a current diagnosis for this admission?: YesDiagnosis Summary: As above (4) Anemia in chronic kidney disease Is this a current diagnosis for this admission?: YesDiagnosis Summary: Stable. Underwent recent upper and lower endoscopy on July 082016 with no significant findings. (5) Diabetes 1.5, managed as type 2 Is this a current diagnosis for this admission?: YesDiagnosis Summary: Monitor blood sugars carefully while on systemic steroids. (6) Hypertension Is this a current diagnosis for this admission?: YesDiagnosis Summary: Titrate his regimen as needed. (7) Peritoneal dialysis status Is this a current diagnosis for this admission?: Yes - Transfer Medications Home Medications: Acetaminophen [Tylenol 325 mg Tablet] 650 mg PO Q4HP PRN 07/29/16 Amlodipine Besylate [Norvasc 5 mg Tablet] 5 mg PO DAILYP PRN 07/29/16 Atenolol [Tenormin] 25 mg PO DAILYP PRN 07/29/16 B Complex & C No.20/Folic Acid [Renal Caps Softgel] 1 mg PO DAILY 07/29/16 Budesonide/Formoterol Fumarate [Symbicort HFA 160-4.5 mcg Inhaler 6 gm] 2 puff IH Q12 07/29/16 Calcitriol [Rocaltrol 0.25 mcg Capsule] 0.25 mcg PO MOFR@1000 07/29/16 Cinacalcet HCl [Sensipar 30 mg Tablet] 30 mg PO DAILY 07/29/16 Clonidine HCl [Catapres 0.1 mg Tablet] 0.1 mg PO QHS 07/29/16 Epoetin Bk [Procrit Inj 20,000 Unit/1 ml Vial (Renal)] 20,000 units INJ ASDIR PRN 07/29/16 Esomeprazole Mag Trihydrate [Nexium] 40 mg PO DAILY 07/29/16 Finasteride [Proscar 5 mg Tablet] 5 mg PO DAILY 07/29/16 Folic Acid/Vitamin B Comp W-C [Nephrocaps Multiple Vitamin Capsule] 1 cap PO DAILY 07/29/16 Insulin Glargine,Hum.rec.anlog [Lantus] 20 units SQ HSP PRN 07/29/16 Lactobacillus Acidophilus [Acidophilus] 1 each PO DAILY 07/29/16 Loperamide HCl [Imodium 2 mg Capsule] 2 mg PO Q6HP PRN 07/29/16 Loratadine [Claritin 10 mg Tablet] 10 mg PO DAILY 07/29/16 Magnesium Oxide [Mag-Ox 400 mg Tablet] 400 mg PO Q12 07/29/16 Potassium Chloride [Klor-Con 10 Meq Tablet.sa] 20 meq PO DAILY 07/29/16 Sertraline HCl [Zoloft 50 mg Tablet] 50 mg PO DAILY 07/29/16 Transfer Medications: Current Medications Acetaminophen (Tylenol 325 Mg Tablet) 650 mg PO Q4HP PRN Stop: 08/28/16 05:40 Albuterol/Ipratropium (Duoneb 3 Ml Ampul) 3 ml NEB RTQ6 [facility] Stop: 08/28/16 07:59 Last Admin: 07/29/16 09:54 Dose: 3 ml Amlodipine Besylate (Norvasc 5 Mg Tablet) 5 mg PO DAILYP PRN Stop: 08/28/16 05:40 Calcitriol (Rocaltrol 0.25 Mcg Capsule) 0.25 mcg PO MoFr [facility] Stop: 08/31/16 05:40 Cinacalcet (Sensipar 30 Mg Tablet) 30 mg PO DAILY [facility] Stop: 08/28/16 09:59 Last Admin: 07/29/16 13:25 Dose: 30 mg Clonidine (Catapres 0.1 Mg Tablet) 0.1 mg PO QHS [facility] Stop: 08/28/16 21:59 Dextrose (Dextrose Inj 50% Syringe (25 Gm/50 Ml)) 12.5 gm IV PRN PRN; Protocol PRN Reason: FOR BG 50-69 IN ALERT PATIENT Stop: 08/28/16 05:41 Dextrose (Dextrose Inj 50% Syringe (25 Gm/50 Ml)) 25 gm IV PRN PRN PRN Reason: Protocol Stop: 08/28/16 05:41 Finasteride (Proscar 5 Mg Tablet) 5 mg PO DAILY [facility] Stop: 08/28/16 09:59 Last Admin: 07/29/16 13:24 Dose: 5 mg Fluticasone Propionate (Flonase Nasal Logan 50 Mcg/Logan 16 Gm) 2 spray NASL Q12 [facility] Stop: 08/28/16 05:44 Glucagon (Glucagen Inj 1 Mg Vial) 1 mg IM PRN PRN; Protocol PRN Reason: Evaluate for BG < 70 Stop: 08/28/16 05:41 Glucose (Glutose 40% Gel 15 Gm Tube) 15 gm PO PRN PRN; Protocol PRN Reason: FOR BG 50-69 IN ALERT PATIENT Stop: 08/28/16 05:41 Glucose (Glutose 40% Gel 15 Gm Tube) 30 gm PO PRN PRN; Protocol PRN Reason: FOR BG < 50 IN ALERT PATIENT Stop: 08/28/16 05:41 Heparin Sodium (Porcine) (Heparin Inj 5,000 Units/Ml 1 Ml Syringe) 5,000 unit SUBCUT Q8 [facility] Stop: 08/28/16 05:59 Last Admin: 07/29/16 13:59 Dose: 5,000 unit Clindamycin Phosphate/Dextrose (Cleocin Rtu 900 Mg/D5w 50 Ml Premix) 50 mls @ 50 mls/hr IV Q8 [facility] Stop: 08/05/16 05:59 Last Admin: 07/29/16 13:25 Dose: 50 ml Insulin Human Lispro (Humalog Insulin 100 Unit/1 Ml 3 Ml Vial) 0 - 12 unit SUBCUT Q6HP PRN PRN Reason: Protocol Stop: 08/28/16 05:41 Last Admin: 07/29/16 14:00 Dose: 8 unit Lansoprazole (Prevacid 15 Mg Odt Tablet) 15 mg PO DAILY [facility] Stop: 08/28/16 06:14 Last Admin: 07/29/16 13:23 Dose: 15 mg Magnesium Oxide (Mag-Ox 400 Mg Tablet) 400 mg PO Q12 [facility] Stop: 08/28/16 09:59 Last Admin: 07/29/16 13:23 Dose: 400 mg Multivit/Ca Carb/B Cmplx/FA/Prenat (Nephrocaps Multiple Vitamin Capsule) 1 cap PO DAILY [facility] Stop: 08/28/16 09:59 Last Admin: 07/29/16 13:24 Dose: 1 cap Patient Own Medication (Atenolol [Tenormin]) 25 mg PO DAILYP PRN Patient Own Medication (Lactobacillus Acidophilus [Probiotic]) 1 cap PO DAILY [facility] Stop: 08/28/16 09:59 Sertraline HCl (Zoloft 50 Mg Tablet) 50 mg PO DAILY [facility] Stop: 08/28/16 09:59 Last Admin: 07/29/16 13:24 Dose: 50 mg - Allergies Allergies/Adverse Reactions: No Known Allergies Allergy (Verified 09/02/15 07:02) - Diet/Activity Discharge Diet: Other (Comments) - Nothing by mouth Discharge Activity: Activity As Tolerated Hospital Course Hospital Course: Per H&P: "VERNELL DOVE is a 75 year old male with a past medical history of end -stage renal failure on peritoneal dialysis with Dr. Burdick. Who had been in his usual state of health until approximately 12 hours prior to presentation developing shortness of breath notable for upper airway wheezing and rhonchi, right sided submandibular pain and sore throat, without drooling. Denying painful dentition. He denies chest or abdominal pain, nausea vomiting, previous episode or infectious contacts. In the emergency room his found to have a respiratory rate in the 40s and upper airway rhonchi he receives Solu- Medrol and vancomycin 1 and referred to the hospitalist for admission." When I inherited his care this morning he actually denied any systemic symptoms of infection or inflammation stating no odynophagia, sore throat, swollen glands. His only complaint has been difficulty getting air with wheezing. He actually presented similarly on July 08 with shortness of breath and wheezing , was found to be more anemic than usual and Hemoccult positive leading the physicians at that time to pursue a GI source for his anemia is likely culprit for his dyspnea. His however reports even after 2 units of packed red blood cells and upper and lower endoscopy that were nondiagnostic for GI source that is symptoms improved but never resolved. Since that time he has intermittent wheezing most notable when he lies flat which also increases his dyspnea. His respiratory distress worsened to the point that she brought him into the ER again for evaluation. I reviewed the CT scan performed on 07/08/2016 with the radiologist as well as today's soft-tissue plain films of his neck and again there seems to be some fullness to the right epiglottis without obvious mass, abscess, fluid collection , no definitive anatomic abnormality however his great vessels of the neck and airway are impinged upon by this "fullness" in the right epiglottis. His lung exam is quite benign but he continued to struggle to breathe until BiPAP was placed in the positive pressure allows him to overcome the restriction of his upper airway and he is resting much more comfortably now, breathing with much less difficulty. Oxygenating him as never been an issue, he was 100% on 2 L in the emergency department and remains on minimal FiO2 now. Likewise hemodynamically he is stable albeit a bit more hypertensive than usual likely due to the respiratory distress. It is my opinion that the patient requires direct laryngoscopy to visualize the area of concern, in particular the right epiglottis, a procedure we cannot perform here. We also do not have ENT available for consultation. It seems he is now BiPAP dependent to overcome the upper airway obstruction and still has some stridor so I felt it prudent while he was still stable to get him transferred to a tertiary care center with the services available. I spoke with Dr. Fitch, hospitalist, who graciously accepted the patient in transfer at [facility] once a bed becomes available. I discussed the case with the family and patient at the bedside, all parties are in agreement with this treatment plan. At the time of this dictation the patient is stable for transport though I recommend continuing at least a CPAP while in transit at a minimum 10 cm H20 to keep the patient comfortable. Physical Exam Vital Signs: Temp Pulse Resp BP Pulse Ox 98.5 F 85 28 H 143/97 H 97 07/29/16 11:45 07/29/16 11:45 07/29/16 12:08 07/29/16 11:45 07/29/16 12:08 Intake & Output 07/28/16 07/29/16 07/30/16 06:59 06:59 06:59 Intake Total 2500 Output Total 2800 Balance -300 Weight 87.2 kg General appearance: PRESENT: cooperative, mild distress, obese Head exam: PRESENT: atraumatic, normocephalic Eye exam: PRESENT: EOMI. ABSENT: conjunctival injection Mouth exam: PRESENT: dry mucosa, neck supple - Multiple keloids noted making it impossible to differentiate subcutaneous adenopathy Throat exam: ABSENT: post pharyngeal erythema, tonsillar erythema, tonsillar exudate Neck exam: PRESENT: full ROM. ABSENT: carotid bruit, JVD, tenderness Respiratory exam: PRESENT: accessory muscle use, clear to auscultation collin, stridor - Right-sided. ABSENT: wheezes Cardiovascular exam: PRESENT: RRR. ABSENT: systolic murmur Pulses: PRESENT: normal carotid pulses, normal radial pulses GI/Abdominal exam: PRESENT: distended, normal bowel sounds, soft. ABSENT: tenderness Extremities exam: ABSENT: calf tenderness, pedal edema Neurological exam: PRESENT: alert, awake, oriented to person, oriented to place , oriented to situation Psychiatric exam: PRESENT: anxious Skin exam: PRESENT: dry, warm, other - Multiple keloids noted over his entire body mostly about his head and neck Results Laboratory Results: 07/29/16 06:50 07/29/16 07:55 07/29/16 07/29/16 07/29/16 06:50 06:50 07:55 WBC 17.4 H RBC 3.25 L Hgb 8.1 L Hct 25.8 L MCV 80 MCH 24.9 L MCHC 31.4 L RDW 23.0 H Plt Count 179 Seg Neutrophils % Not Reportable Lymphocytes % Not Reportable Monocytes % Not Reportable Eosinophils % Not Reportable Basophils % Not Reportable Absolute Neutrophils Not Reportable Absolute Lymphocytes Not Reportable Absolute Monocytes Not Reportable Absolute Eosinophils Not Reportable Absolute Basophils Not Reportable Sodium Cancelled 137.8 Potassium Cancelled 4.3 Chloride Cancelled 92 L Carbon Dioxide Cancelled 26 Anion Gap Cancelled 20 H BUN Cancelled 36 H Creatinine Cancelled 6.87 H Est GFR ( Amer) Cancelled 10 L Est GFR (Non-Af Amer) Cancelled 8 L Glucose Cancelled 322 H Calcium Cancelled 8.5 Impressions: Chest X-Ray 07/28/16 18:50 IMPRESSION: No acute cardiopulmonary findings. Soft Tissue Neck X-Ray 07/29/16 00:00 IMPRESSION: Limited study as noted above. There is loss of definition of the epiglottis and the possibility of epiglottitis cannot be excluded. Clinical correlation is recommended. Other findings as noted above Plan Discharge Plan: Transfer to tertiary care for ENT evaluation. Time Spent: Greater than 30 Minutes
--- NOTE | 2016-07-29 16:20 | PDOC CONSULTATION ---
Consultation Consult Date: 07/29/16 Consult reason:: Peritoneal Dialysis. History of Present Illness Admission Date/PCP: 07/29/16 05:43 MERARY PADILLA NP History of Present Illness: VERNELL DOVE is a 75 year old male with a past medical history of end-stage renal failure on peritoneal dialysis. He had been in his usual state of health until approximately 12 hours prior to presentation developing shortness of breath notable for upper airway wheezing and rhonchi, right sided submandibular pain and sore throat, without drooling. Denying painful dentition. He denies chest or abdominal pain, nausea vomiting, previous episode or infectious contacts. In the emergency room his found to have a respiratory rate in the 40s and upper airway rhonchi he receives Solu-Medrol and vancomycin 1 and admitted. Currently on Bip Pap and feeling some better .However at bedsides states that if off the bipap, he gets bad. He has had a PD exchange done this AM around 7. Past Medical History Cardiac Medical History: Reports: Hypertension-primary Denies: Atrial Fibrillation, Coronary Artery Disease, Heart Murmur, Hyperlipidemia, Myocardial Infarction, Peripheral Vascular Disease, Pulmonary Embolism Pulmonary Medical History: Reports: Sleep Apnea Denies: Asthma, Bronchitis, Chronic Obstructive Pulmonary Disease (COPD), Pneumonia, Respiratory Failure, Tuberculosis Neurological Medical History: Denies: Seizures Endocrine Medical History: Reports: Diabetes Mellitus Type 2 Denies: Hyperthyroidism, Hypothyroidism Renal/ Medical History: Reports: End Stage Renal Disease Malignancy Medical History: Denies: Breast Cancer, Cervical Cancer, Ovarian Cancer GI Medical History: Reports: Gastroesophageal Reflux Disease Musculoskeltal Medical History: Denies: Rheumatoid Arthritis, Systemic Lupus Erythematosus Psychiatric Medical History: Denies: Depression Hematology Medical History: Reports Anemia of Chronic Kidney Disease Past Surgical History Past Surgical History: Reports: Vascular Surgery - Fistula and peritoneal dialysis catheter, Other - Parathyroid. Denies: Colostomy, Pacemaker Social History Lives with: Family Smoking Status: Former Smoker Frequency of Alcohol Use: None Hx Recreational Drug Use: No Drugs: None Hx Prescription Drug Abuse: No - Advance Directive Resuscitation Status: Full Code Family History Parental Family History Reviewed: Yes - no h/o ESRD Children Family History Reviewed: No Sibling(s) Family History Reviewed.: No Medication/Allergy Home Medications: Acetaminophen [Tylenol 325 mg Tablet] 650 mg PO Q4HP PRN 07/29/16 Amlodipine Besylate [Norvasc 5 mg Tablet] 5 mg PO DAILYP PRN 07/29/16 Atenolol [Tenormin] 25 mg PO DAILYP PRN 07/29/16 B Complex & C No.20/Folic Acid [Renal Caps Softgel] 1 mg PO DAILY 07/29/16 Budesonide/Formoterol Fumarate [Symbicort HFA 160-4.5 mcg Inhaler 6 gm] 2 puff IH Q12 07/29/16 Calcitriol [Rocaltrol 0.25 mcg Capsule] 0.25 mcg PO MOFR@1000 07/29/16 Cinacalcet HCl [Sensipar 30 mg Tablet] 30 mg PO DAILY 07/29/16 Clonidine HCl [Catapres 0.1 mg Tablet] 0.1 mg PO QHS 07/29/16 Epoetin Bk [Procrit Inj 20,000 Unit/1 ml Vial (Renal)] 20,000 units INJ ASDIR PRN 07/29/16 Esomeprazole Mag Trihydrate [Nexium] 40 mg PO DAILY 07/29/16 Finasteride [Proscar 5 mg Tablet] 5 mg PO DAILY 07/29/16 Folic Acid/Vitamin B Comp W-C [Nephrocaps Multiple Vitamin Capsule] 1 cap PO DAILY 07/29/16 Insulin Glargine,Hum.rec.anlog [Lantus] 20 units SQ HSP PRN 07/29/16 Lactobacillus Acidophilus [Acidophilus] 1 each PO DAILY 07/29/16 Loperamide HCl [Imodium 2 mg Capsule] 2 mg PO Q6HP PRN 07/29/16 Loratadine [Claritin 10 mg Tablet] 10 mg PO DAILY 07/29/16 Magnesium Oxide [Mag-Ox 400 mg Tablet] 400 mg PO Q12 07/29/16 Potassium Chloride [Klor-Con 10 Meq Tablet.sa] 20 meq PO DAILY 07/29/16 Sertraline HCl [Zoloft 50 mg Tablet] 50 mg PO DAILY 07/29/16 Allergies/Adverse Reactions: No Known Allergies Allergy (Verified 09/02/15 07:02) Review of Systems Constitutional: ABSENT: fever(s), headache(s), night sweats, weakness Nose, Mouth, and Throat: ABSENT: mouth pain, sore throat Cardiovascular: ABSENT: edema, orthropnea Respiratory: PRESENT: dyspnea. ABSENT: hemoptysis Gastrointestinal: PRESENT: heartburn. ABSENT: abdominal pain, coffee ground emesis, constipation, diarrhea, dysphagia, hematemesis, hematochezia Neurological: ABSENT: abnormal gait, abnormal movements, abnormal speech, confusion Physical Exam Vital Signs: Temp Pulse Resp BP Pulse Ox 98.5 F 89 30 H 143/97 H 97 07/29/16 11:45 07/29/16 14:25 07/29/16 14:25 07/29/16 11:45 07/29/16 14:25 Intake & Output 07/28/16 07/29/16 07/30/16 06:59 06:59 06:59 Intake Total 2500 Output Total 2800 Balance -300 Weight 87.2 kg General appearance: PRESENT: mild distress Eye exam: PRESENT: EOMI, PERRLA. ABSENT: nystagmus, periorbital swelling Ear exam: ABSENT: bleeding, drainage, normal external ear exam Mouth exam: PRESENT: moist. ABSENT: neck supple Neck exam: ABSENT: meningismus, thyromegaly, tracheal deviation Respiratory exam: PRESENT: clear to auscultation collin. ABSENT: crackles, rhonchi , stridor - currently.Apparently he had it on admission. Cardiovascular exam: PRESENT: +S1, +S2 Extremities exam: PRESENT: pedal edema Neurological exam: PRESENT: awake, oriented to person, oriented to place, oriented to time Psychiatric exam: PRESENT: flat affect Results Laboratory Results: 07/29/16 06:50 07/29/16 07:55 07/29/16 07/29/16 07/29/16 06:50 06:50 07:55 WBC 17.4 H RBC 3.25 L Hgb 8.1 L Hct 25.8 L MCV 80 MCH 24.9 L MCHC 31.4 L RDW 23.0 H Plt Count 179 Seg Neutrophils % Not Reportable Lymphocytes % Not Reportable Monocytes % Not Reportable Eosinophils % Not Reportable Basophils % Not Reportable Absolute Neutrophils Not Reportable Absolute Lymphocytes Not Reportable Absolute Monocytes Not Reportable Absolute Eosinophils Not Reportable Absolute Basophils Not Reportable Sodium Cancelled 137.8 Potassium Cancelled 4.3 Chloride Cancelled 92 L Carbon Dioxide Cancelled 26 Anion Gap Cancelled 20 H BUN Cancelled 36 H Creatinine Cancelled 6.87 H Est GFR ( Amer) Cancelled 10 L Est GFR (Non-Af Amer) Cancelled 8 L Glucose Cancelled 322 H Calcium Cancelled 8.5 Impressions: Chest X-Ray 07/28/16 18:50 IMPRESSION: No acute cardiopulmonary findings. Soft Tissue Neck X-Ray 07/29/16 00:00 IMPRESSION: Limited study as noted above. There is loss of definition of the epiglottis and the possibility of epiglottitis cannot be excluded. Clinical correlation is recommended. Other findings as noted above Assessment & Plan - Diagnosis (1) Airway obstruction Is this a current diagnosis for this admission?: YesPlan: As per hospitalist.Discussed with Dr Najera/Hospitalist.Needs urgent ENT eval/ Layngoscopy and needs to be transferred to tertiary care hospital. No indication for Epi now. (2) Difficulty breathing Is this a current diagnosis for this admission?: YesPlan: Improved some on current rxs.However still in Bi Pap and needs further eval and rx. (3) ESRD (end stage renal disease) on dialysis Is this a current diagnosis for this admission?: YesPlan: Undergoing PD without issues. (4) Epiglottitis Is this a current diagnosis for this admission?: Yes (5) Anemia Qualifiers: Anemia type: unspecified type Qualified Code(s): D64.9 - Anemia, unspecified (6) Peritoneal dialysis status Is this a current diagnosis for this admission?: YesPlan: No issues.
[2016-07-29 17:04] VITALS: BP 111/67
[2016-07-29] MEDS ORDERED: ATENOLOL 50 MG TABLET PO ONE (17:30)
[2016-07-29] MEDS ORDERED: CLONIDINE HCL 0.1 MG TABLET PO SCH (22:00)
[2016-07-30] MEDS ORDERED: LACTOBACILLUS ACIDOPHILUS 250 MG TAB PO SCH (10:00)
[2016-07-30] MEDS ORDERED: ATENOLOL 50 MG TABLET PO SCH (10:00)
[2016-08-01] MEDS ORDERED: CALCITRIOL 0.25 MCG CAPSULE PO SCH (05:41)
== END 2016-07-29 18:10 | disposition short-term general hospital (02) | DRG 152 ==
LOC: ER 18:28 → EH 07-29 05:40 → UNDOADMIN 07-29 05:40 → EH 07-29 05:43 → 4N 07-29 09:07
PROVIDERS: ADMIT Internal Medicine; ATTEND Internal Medicine
PROC: 5A09357 Assistance with Respiratory Ventilation, Less than 24 Consecutive Hours, Continuous Positive Airway Pressure (ICD-10-PCS; principal; 2016-07-29)
DX: J05.10 Acute epiglottitis without obstruction (principal); N18.6 End stage renal disease; I12.0 Hypertensive chronic kidney disease with stage 5 chronic kidney disease or end stage renal disease; J98.8 Other specified respiratory disorders; J02.9 Acute pharyngitis, unspecified; G47.30 Sleep apnea, unspecified; K21.9 Gastro-esophageal reflux disease without esophagitis; F32.9 Major depressive disorder, single episode, unspecified; E13.22 Other specified diabetes mellitus with diabetic chronic kidney disease; R06.02 Shortness of breath; L91.0 Hypertrophic scar; D63.1 Anemia in chronic kidney disease; Z95.9 Presence of cardiac and vascular implant and graft, unspecified; Z82.49 Family history of ischemic heart disease and other diseases of the circulatory system; Z98.890 Other specified postprocedural states; Z87.891 Personal history of nicotine dependence; Z99.2 Dependence on renal dialysis; Z79.4 Long term (current) use of insulin
CPT/HCPCS: 36415; 70360; 71010; 80048; 80053; 82550; 82553; 82962; 84484; 85025; 85610; 85730; 87040; 87070; 87075; 87205; 89050; 90945; 93005; 93010; 94640; 94660; J1644; J1815; J2930; J3370; J7620

== ENCOUNTER 2016-08-20 14:54 | Emergency (ER) | payer MEDICARE, OTHER ==
[2016-08-20 16:28] LABS: HEMATOCRIT 23.2 % (37.9-51.0); HGB HCT DIFFERENCE -1.3; MEAN CORPUSCULAR HEMOGLOBIN 25.7 pg (27.0-33.4); MEAN CORPUSCULAR HGB CONC 31.7 g/dL (32.0-36.0); MEAN CORPUSCULAR VOLUME 81 fl (80-97); RED BLOOD COUNT 2.86 10^6/uL (4.35-5.55); RED CELL DISTRIBUTION WIDTH 22.6 % (11.5-14.0); WHITE BLOOD COUNT 4.8 10^3/uL (4.0-10.5)
[2016-08-20 16:29] LABS: PROTHROMBIN TIME 15.6 SEC (11.4-15.4)
[2016-08-20 16:35] LABS: ALANINE AMINOTRANSFERASE 187 U/L (21-72); ALBUMIN 2.5 g/dL (3.5-5.0); ALKALINE PHOSPHATASE 418 U/L (38-126); ANION GAP 9 (5-19); ASPARTATE AMINO TRANSFERASE 173 U/L (17-59); BILIRUBIN,DIRECT 0.9 mg/dL (0.0-0.3); BILIRUBIN,TOTAL 2.8 mg/dL (0.2-1.3); BLOOD UREA NITROGEN 29 mg/dL (7-20); CALCIUM 7.8 mg/dL (8.4-10.2); CARBON DIOXIDE 31 mmol/L (22-30); CHLORIDE 94 mmol/L (98-107); CREATININE RESULT 6.36 mg/dL (0.52-1.25); GLUCOSE 159 mg/dL (75-110); POTASSIUM 4.1 mmol/L (3.6-5.0); SODIUM 133.6 mmol/L (137-145); TOTAL PROTEIN 5.1 g/dL (6.3-8.2)
[2016-08-20] MEDS ORDERED: NORMAL SALINE 1000 ML 500 ML IV ONE (16:44)
[2016-08-20 16:56] LABS: HEMOGLOBIN 7.3 g/dL (13.5-17.0)
[2016-08-20 17:01] LABS: BASOPHILS % (MANUAL) 0 % (0-2); EOSINOPHILS % (MANUAL) 2 % (0-6); LYMPHOCYTES % (MANUAL) 4 % (13-45); TOTAL CELLS COUNTED 100
[2016-08-20 17:02] LABS: HYPOCHROMASIA SLIGHT
[2016-08-20 17:03] LABS: ANISOCYTOSIS 3+; OVALOCYTES SLIGHT; POIKILOCYTOSIS SLIGHT; TARGET CELLS SLIGHT
[2016-08-20 17:57] LABS: VENOUS BLOOD BASE EXCESS 4.1 mmol/L; VENOUS BLOOD HCO3 31.6 mmol/L (20-32); VENOUS BLOOD PCO2 61.3 mmHg (35-63); VENOUS BLOOD PH 7.33 (7.30-7.42)
[2016-08-20 18:04] LABS: APPEARANCE,URINE CLOUDY; BILIRUBIN,URINE NEGATIVE (NEGATIVE); GLUCOSE, URINE 50 mg/dL (NEGATIVE); KETONES,URINE NEGATIVE (NEGATIVE); LEUKOCYTE ESTERASE,URINE SMALL (NEGATIVE); NITRITE,URINE NEGATIVE (NEGATIVE); PROTEIN,URINE >=500 mg/dL (NEGATIVE); URINE SPECIFIC GRAVITY 1.034; UROBILINOGEN,URINE NEGATIVE mg/dL (<2.0)
[2016-08-20] MEDS ORDERED: GENTAMICIN SULFATE INJ 80 MG/2 ML VIAL IV ONE (18:11)
[2016-08-20] MEDS ORDERED: VANCOMYCIN HCL INJ 1000 MG VIAL IV ONE (18:11)
[2016-08-20] MEDS ORDERED: CEFOXITIN 1 GM/D5W RTU 50 ML IV ONE (18:38)
[2016-08-20 19:35] LABS: FLUID TYPE PERITONEAL
[2016-08-20 19:37] LABS: FLUID APPEARANCE CLEAR; FLUID RBC AVERAGE 1.5; FLUID RBC SIDE 1 1; FLUID RBC SIDE 2 2
[2016-08-20 19:38] LABS: FLUID RBC DILUENT USED NONE USED; FLUID RBC DILUTION FACTOR 1; TOTAL RBC SQUARES COUNTED FLD 225
--- NOTE | 2016-08-20 19:42 | ER Document Report ---
ED General - General TRAVEL OUTSIDE OF THE [place] IN LAST 30 DAYS: No - HPI Patient complains to provider of: fever generalized weakness <ANA CHAU - Last Filed: 08/20/16 21:06> <BIANCA JAUREGUI - Last Filed: 08/21/16 01:20> - General Chief Complaint: Fever Stated Complaint: WEAKNESS - HPI Notes: Patient coming in for fever and generalized weakness. Patient has a history of end-stage renal disease and is on peritoneal dialysis. Patient according to the family at her bedside had his PD catheter exchange day prior to arrival had a fever at home of 101.9 patient was to go to [facility] today for [facility] and evaluation however due to generalized weakness could not make it to [facility] therefore came to the ER. Upon arrival patient was noted to have blood pressure in the 100s to upper 90s. According to family patient's blood pressures normally in the 130s. Patient had recently been discharged from [facility] after possible throat infection according to the family members. Also the time patient was noticed to be anemic and was given a transfusion of iron. States patient normally has a history of iron transfusions. Patient has a known chronic anemia states no recent bloody stools. Family also states patient had abdominal pain prior to arrival lower abdominal pain. Otherwise patient upon my evaluation has no complaints this time denies nausea vomiting chest pain abdominal pain currently (ANA CHAU) - Related Data Allergies/Adverse Reactions: No Known Allergies Allergy (Verified 09/02/15 07:02) Past Medical History - Social History Smoking Status: Unknown if Ever Smoked Family History: Hypertension - Past Medical History Cardiac Medical History: Reports: Hx Hypertension Denies: Hx Atrial Fibrillation, Hx Congestive Heart Failure, Hx Coronary Artery Disease, Hx Heart Attack, Hx Hypercholesterolemia, Hx Peripheral Vascular Disease, Hx Pulmonary Embolism, Hx Heart Murmur Pulmonary Medical History: Reports: Hx Sleep Apnea Denies: Hx Asthma, Hx Bronchitis, Hx COPD, Hx Pneumonia, Hx Respiratory Failure, Hx Tuberculosis Neurological Medical History: Denies: Hx Cerebrovascular Accident, Hx Seizures Endocrine Medical History: Reports: Hx Diabetes Mellitus Type 2. Denies: Hx Graves' Disease, Hx Hyperthyroidism, Hx Hypothyroidism Renal/ Medical History: Reports: Hx End Stage Renal Disease, Hx Peritoneal Dialysis GI Medical History: Reports: Hx Gastroesophageal Reflux Disease, Hx Ulcer Psychiatric Medical History: Denies: Hx Depression Past Surgical History: Reports: Hx Abdominal Surgery - HERNIA, Hx Inguinal Hernia, Hx Thyroid Surgery - Parathyroid, Hx Vascular Surgery - Fistula and peritoneal dialysis catheter, Other - Parathyroid.. Denies: Hx Colostomy, Hx Pacemaker - Immunizations Hx Diphtheria, Pertussis, Tetanus Vaccination: No Hx Pneumococcal Vaccination: 01/04/12 <ANA CHAU - Last Filed: 08/20/16 21:06> Review of Systems - Review of Systems Constitutional: Fever, Weakness EENT: No symptoms reported Cardiovascular: No symptoms reported Respiratory: No symptoms reported Gastrointestinal: No symptoms reported Genitourinary: No symptoms reported Male Genitourinary: No symptoms reported Musculoskeletal: No symptoms reported Skin: No symptoms reported Hematologic/Lymphatic: No symptoms reported Neurological/Psychological: No symptoms reported -: Yes All other systems reviewed and negative <ANA CHAU Last Filed: 08/20/16 21:06> Physical Exam - Vital signs Interpretation: Hypotensive, Tachypneic - General General appearance: Appears well, Alert - HEENT Head: Normocephalic, Atraumatic Eyes: Normal Pupils: PERRL - Respiratory Respiratory status: No respiratory distress Chest status: Nontender Breath sounds: Rhonchi - Bilateral Chest palpation: Normal - Cardiovascular Rhythm: Regular Heart sounds: Normal auscultation Murmur: No - Abdominal Inspection: Normal Distension: No distension Bowel sounds: Normal Tenderness: Nontender Organomegaly: No organomegaly - Rectal Stool: Heme negative - Brown stool Hemorrhoids: None - Genitourinary Inspection: Normal Scrotum: Redness - Redness consistent with yeast infection and no signs of Zach's gangrene or overt infection - Back Back: Normal, Nontender - Extremities General upper extremity: Normal inspection, Nontender, Normal color, Normal ROM , Normal temperature General lower extremity: Normal inspection, Nontender, Normal color, Normal ROM , Normal temperature, Normal weight bearing. No: Mendy's sign - Neurological Neuro grossly intact: Yes Cognition: Normal Orientation: AAOx4 Aldo Coma Scale Eye Opening: Spontaneous Aldo Coma Scale Verbal: Oriented [place] Coma Scale Motor: Obeys Commands [place] Coma Scale Total: 15 Speech: Normal Motor strength normal: LUE, RUE, LLE, RLE Sensory: Normal - Psychological Associated symptoms: Normal affect, Normal mood - Skin Skin Temperature: Warm Skin Moisture: Dry Skin Color: Normal <ANA CHAU - Last Filed: 08/20/16 21:06> <BIANCA JAUREGUI - Last Filed: 08/21/16 01:20> - Vital signs Vitals: Temp Pulse Resp Pulse Ox 98.3 F 93 25 H 97 08/20/16 15:15 08/20/16 15:15 08/20/16 15:15 08/20/16 15:15 - Abdominal Notes: PT catheter in place. Patient of note has multiple keloid scar on his anterior chest wall anterior abdomen. (ANA CHAU) Course - Laboratory Result Diagrams: 08/20/16 15:32 08/20/16 15:32 <ANA CHAU - Last Filed: 08/20/16 21:06> - Laboratory Result Diagrams: 08/20/16 15:32 08/20/16 15:32 <BIANCA JAUREGUI - Last Filed: 08/21/16 01:20> - Re-evaluation Re-evalutation: 08/20/16 19:40 Patient with no elevation in WBCs but does have a shift. Patient noted hemoglobin 7.3 last hemoglobin recorded here was 8.1. No signs of overt bleeding at this time. More likely anemia of chronic disease. Patient does have elevation in his creatinine. Patient has new elevation in his bilirubin LFTs alkaline phosphatase and lipase. Ultrasound was performed to evaluate liver and common bile duct this looks negative at this time. Currently waiting for official radiology read. Patient did undergo a exchange of his fluid and this was sent down to the laboratory for cell count. Fluid was bright yellow and non-cloudy. Did not look infected. Chest x-ray does show some patchy infiltrates patient does have cough and fever will go ahead and cover for possible pneumonia. Urinalysis also showed WBCs and trace bacteria blood cultures and urine culture will be sent. Blood pressure improved greatly with a simple fluid bolus 500 mL by EMS in 500 mL Biosyn here in ER total of 1 L total 08/20/16 19:42 Dr. Burdick at bedside to evaluate patient recommends admission and pending culture results. Reevaluation of the patient nontender abdomen 08/20/16 20:25 Discussed with the hospitalist. Initially stated to get a CAT scan repeat lab work and reconsult with him recommends transfer to [facility] Concerned about patient's elevation in his bilirubin and LFTs. Requested transfer to a facility with GI backup. 08/20/16 21:[address] Claudio. Patient will be accepted in transfer however did request that we could continue to monitor the patient repeat patient's lab work at a reasonable time. Otherwise at this time patient is otherwise stable patient's currently pending transfer. Notified by [facility] that there are no beds available at this time 08/20/16 21:05 (ANA CHAU) 08/21/16 01:19 Care of this patient was signed to me by Dr. Chau. A CT the abdomen and pelvis was ordered prior to him leaving and I was contacted by the radiologist regarding concern for free air in the abdomen. Immediately went to the bedside to assess the patient was not many of any abdominal pain. Of note, his peritoneal dialysis catheter was just changed out less than 24 hours ago and this is clinically consistent with free air was becoming from seeing as patient did not have any evidence of a bowel or bladder perforation on CT and continues to be without any abdominal pain. He did contact [facility] and discussed this with was in agreement. Patient is stable for transfer at this time. (BIANCA JAUREGUI) - Vital Signs Vital signs: Temp Pulse Resp BP Pulse Ox 98.3 F 75 29 H 112/82 99 08/20/16 15:15 08/20/16 18:15 08/21/16 00:33 08/21/16 00:33 08/21/16 00:33 - Laboratory Laboratory results interpreted by me: 08/20/16 08/20/16 08/20/16 15:32 15:32 15:32 RBC 2.86 L Hgb 7.3 L Hct 23.2 L MCH 25.7 L MCHC 31.7 L RDW 22.6 H Plt Count 109 L Seg Neuts % (Manual) 93 H Lymphocytes % (Manual) 4 L Monocytes % (Manual) 1 L Abs Lymphs (Manual) 0.2 L Abs Monocytes (Manual) 0.0 L PT 15.6 H Sodium 133.6 L Chloride 94 L Carbon Dioxide 31 H BUN 29 H Creatinine 6.36 H Est GFR ( Amer) 10 L Est GFR (Non-Af Amer) 9 L Glucose 159 H Calcium 7.8 L Total Bilirubin 2.8 H Direct Bilirubin 0.9 H AST 173 H ALT 187 H Alkaline Phosphatase 418 H Total Protein 5.1 L Albumin 2.5 L Lipase Urine Protein Urine Glucose (UA) Urine Blood Ur Leukocyte Esterase 08/20/16 08/20/16 15:32 16:48 RBC Hgb Hct MCH MCHC RDW Plt Count Seg Neuts % (Manual) Lymphocytes % (Manual) Monocytes % (Manual) Abs Lymphs (Manual) Abs Monocytes (Manual) PT Sodium Chloride Carbon Dioxide BUN Creatinine Est GFR ( Amer) Est GFR (Non-Af Amer) Glucose Calcium Total Bilirubin Direct Bilirubin AST ALT Alkaline Phosphatase Total Protein Albumin Lipase 601.8 H Urine Protein >=500 H Urine Glucose (UA) 50 H Urine Blood MODERATE H Ur Leukocyte Esterase SMALL H Discharge <ANA CHAU - Last Filed: 08/20/16 21:06> <BIANCA JAUREGUI - Last Filed: 08/21/16 01:20> - Discharge Clinical Impression: ESRD on peritoneal dialysis, Transient hypotension, Abnormal liver function tests Fever Qualifiers: Fever type: unspecified Qualified Code(s): R50.9 - Fever, unspecified Condition: Fair Disposition: [facility]
--- NOTE | 2016-08-20 19:45 | PDOC CONSULTATION ---
Consultation Consult Date: 08/20/16 Consult reason:: Management of peritoneal dialysis in the setting of hypotension. History of Present Illness History of Present Illness: VERNELL DOVE is a 76 year old male with a history of ESRD on peritoneal dialysis with a background history of diverticulitis with multiple complications , hypertension, anemia renal status dystrophy and coronary artery disease with ischemic cardiomyopathy deemed inoperable with his recent echocardiogram showing an LV ejection fraction of around 30% as noted admitted with history of feeling unwell, mild upper abdominal pains. She stays he isn't feeling unwell for the last couple of days she had an episode of diarrhea yesterday which has continued to be improving. It does no history of any fever chills or bloody stools. She also found that today's drainage for couple of exchanges was very poor. However , the drain was clear. Patient was recently admitted to [facility] recently and has been diagnosed to have ischemic cardiomyopathy with an ejection fraction of 30% and inoperable severe coronary artery disease. Medical management has been advised. He has also been found to have a right vocal cord paralysis of unknown etiology. Past Medical History Cardiac Medical History: Reports: Hypertension-primary Denies: Atrial Fibrillation, Coronary Artery Disease, Heart Murmur, Hyperlipidemia, Myocardial Infarction, Peripheral Vascular Disease, Pulmonary Embolism Pulmonary Medical History: Reports: Sleep Apnea Denies: Asthma, Bronchitis, Chronic Obstructive Pulmonary Disease (COPD), Pneumonia, Respiratory Failure, Tuberculosis Neurological Medical History: Denies: Seizures Endocrine Medical History: Reports: Diabetes Mellitus Type 2 Denies: Hyperthyroidism, Hypothyroidism Renal/ Medical History: Reports: End Stage Renal Disease Malignancy Medical History: Denies: Breast Cancer, Cervical Cancer, Ovarian Cancer GI Medical History: Reports: Gastroesophageal Reflux Disease Musculoskeltal Medical History: Denies: Rheumatoid Arthritis, Systemic Lupus Erythematosus Psychiatric Medical History: Denies: Depression Hematology Medical History: Reports Anemia of Chronic Kidney Disease Past Surgical History Past Surgical History: Reports: Vascular Surgery - Fistula and peritoneal dialysis catheter, Other - Parathyroid. Denies: Colostomy, Pacemaker Social History Smoking Status: Former Smoker Frequency of Alcohol Use: None Hx Recreational Drug Use: No Drugs: None Hx Prescription Drug Abuse: No Family History Parental Family History Reviewed: Yes - negative for ESRD Children Family History Reviewed: No Sibling(s) Family History Reviewed.: No Medication/Allergy Home Medications: Acetaminophen [Tylenol 325 mg Tablet] 650 mg PO Q4HP PRN 07/29/16 Amlodipine Besylate [Norvasc 5 mg Tablet] 5 mg PO DAILYP PRN 07/29/16 Atenolol [Tenormin] 25 mg PO DAILYP PRN 07/29/16 B Complex & C No.20/Folic Acid [Renal Caps Softgel] 1 mg PO DAILY 07/29/16 Budesonide/Formoterol Fumarate [Symbicort HFA 160-4.5 mcg Inhaler 6 gm] 2 puff IH Q12 07/29/16 Calcitriol [Rocaltrol 0.25 mcg Capsule] 0.25 mcg PO MOFR@1000 07/29/16 Cinacalcet HCl [Sensipar 30 mg Tablet] 30 mg PO DAILY 07/29/16 Clonidine HCl [Catapres 0.1 mg Tablet] 0.1 mg PO QHS 07/29/16 Epoetin Bk [Procrit Inj 20,000 Unit/1 ml Vial (Renal)] 20,000 units INJ ASDIR PRN 07/29/16 Esomeprazole Mag Trihydrate [Nexium] 40 mg PO DAILY 07/29/16 Finasteride [Proscar 5 mg Tablet] 5 mg PO DAILY 07/29/16 Folic Acid/Vitamin B Comp W-C [Nephrocaps Multiple Vitamin Capsule] 1 cap PO DAILY 07/29/16 Insulin Glargine,Hum.rec.anlog [Lantus] 20 units SQ HSP PRN 07/29/16 Lactobacillus Acidophilus [Acidophilus] 1 each PO DAILY 07/29/16 Loperamide HCl [Imodium 2 mg Capsule] 2 mg PO Q6HP PRN 07/29/16 Loratadine [Claritin 10 mg Tablet] 10 mg PO DAILY 07/29/16 Magnesium Oxide [Mag-Ox 400 mg Tablet] 400 mg PO Q12 07/29/16 Potassium Chloride [Klor-Con 10 Meq Tablet.sa] 20 meq PO DAILY 07/29/16 Sertraline HCl [Zoloft 50 mg Tablet] 50 mg PO DAILY 07/29/16 Allergies/Adverse Reactions: No Known Allergies Allergy (Verified 09/02/15 07:02) Review of Systems Review of Systems: Constitutional: [PRESENT: as per HPI. ABSENT: chills, fever(s), headache(s), weight gain, weight loss] Eyes: [ABSENT: visual disturbances] Ears: [ABSENT: hearing changes] Cardiovascular: [ABSENT: chest pain, orthropnea, palpitations] Respiratory: [ABSENT: cough, hemoptysis] Gastrointestinal: [ABSENT: constipation, diarrhea, hematemesis, hematochezia, nausea, vomiting] Genitourinary: [ABSENT: dysuria, hematuria] Musculoskeletal: [ABSENT: joint swelling] Integumentary: [ABSENT: rash, wounds] Neurological: [ABSENT: abnormal gait, abnormal speech, confusion, dizziness, focal weakness, syncope] Psychiatric: [ABSENT: anxiety, depression, homicidal ideation, suicidal ideation ] Endocrine: [ABSENT: cold intolerance, heat intolerance,polydipsia, polyuria] Hematologic/Lymphatic: [ABSENT: easy bleeding, easy bruising, lymphadenopathy] Physical Exam Vital Signs: Temp Pulse Resp BP Pulse Ox 98.3 F 75 26 H 104/62 98 08/20/16 15:15 08/20/16 18:15 08/20/16 19:00 08/20/16 19:00 08/20/16 18:01 Intake & Output 08/19/16 08/20/16 08/21/16 06:59 06:59 06:59 Intake Total 2500 Output Total 2400 Balance 100 Weight 90.7 kg General appearance: PRESENT: no acute distress Eye exam: PRESENT: EOMI, PERRLA Mouth exam: PRESENT: moist, neck supple Neck exam: ABSENT: meningismus, tenderness, thyromegaly, tracheal deviation Respiratory exam: PRESENT: clear to auscultation collin, decreased breath sounds, rhonchi - Few scattered. ABSENT: crackles Cardiovascular exam: PRESENT: +S1, +S2 GI/Abdominal exam: PRESENT: distended, normal bowel sounds, soft, tenderness - The right upper quadrant which is mild. ABSENT: firm, guarding, hernia, organomegaly Extremities exam: PRESENT: +1 edema Neurological exam: PRESENT: alert, awake, oriented to person, oriented to place , oriented to time Psychiatric exam: PRESENT: flat affect Skin exam: PRESENT: normal color. ABSENT: dry, erythema, mottled, rash Results Laboratory Results: 08/20/16 15:32 08/20/16 15:32 08/20/16 08/20/16 08/20/16 15:32 15:32 15:32 WBC 4.8 RBC 2.86 L Hgb 7.3 L Hct 23.2 L MCV 81 MCH 25.7 L MCHC 31.7 L RDW 22.6 H Plt Count 109 L Seg Neutrophils % Not Reportable Lymphocytes % Not Reportable Monocytes % Not Reportable Eosinophils % Not Reportable Basophils % Not Reportable Absolute Neutrophils Not Reportable Absolute Lymphocytes Not Reportable Absolute Monocytes Not Reportable Absolute Eosinophils Not Reportable Absolute Basophils Not Reportable VBG pH VBG pCO2 VBG HCO3 VBG Base Excess Sodium 133.6 L Potassium 4.1 Chloride 94 L Carbon Dioxide 31 H Anion Gap 9 BUN 29 H Creatinine 6.36 H Est GFR ( Amer) 10 L Est GFR (Non-Af Amer) 9 L Glucose 159 H Calcium 7.8 L Total Bilirubin 2.8 H AST 173 H ALT 187 H Alkaline Phosphatase 418 H Total Protein 5.1 L Albumin 2.5 L Lipase 601.8 H Urine Color Urine Appearance Urine pH Ur Specific [place] Urine Protein Urine Glucose (UA) Urine Ketones Urine Blood Urine Nitrite Ur Leukocyte Esterase Urine WBC (Auto) Urine RBC (Auto) Stool Occult Blood 08/20/16 08/20/16 08/20/16 16:48 17:35 18:40 WBC RBC Hgb Hct MCV MCH MCHC RDW Plt Count Seg Neutrophils % Lymphocytes % Monocytes % Eosinophils % Basophils % Absolute Neutrophils Absolute Lymphocytes Absolute Monocytes Absolute Eosinophils Absolute Basophils VBG pH 7.33 VBG pCO2 61.3 VBG HCO3 31.6 VBG Base Excess 4.1 Sodium Potassium Chloride Carbon Dioxide Anion Gap BUN Creatinine Est GFR ( Amer) Est GFR (Non-Af Amer) Glucose Calcium Total Bilirubin AST ALT Alkaline Phosphatase Total Protein Albumin Lipase Urine Color YELLOW Urine Appearance CLOUDY Urine pH 7.0 Ur Specific [place] 1.034 Urine Protein >=500 H Urine Glucose (UA) 50 H Urine Ketones NEGATIVE Urine Blood MODERATE H Urine Nitrite NEGATIVE Ur Leukocyte Esterase SMALL H Urine WBC (Auto) 62 Urine RBC (Auto) >182 Stool Occult Blood NEGATIVE Impressions: Chest X-Ray 08/20/16 16:13 IMPRESSION: Increased patchy airspace opacities in the left lower lobe. Probable small left effusion. Assessment & Plan - Diagnosis (1) Abnormal liver function tests Plan: Awaiting liver gallbladder ultrasound. Rule out pancreatitis, peritonitis (2) ESRD on peritoneal dialysis Plan: Need to rule out peritonitis. Patient had a rapid exchange which was clear. However pending results discussed with Dr. Chau to initiate antibiotics. I will follow through. (3) Transient hypotension Plan: Will monitor. Could have been because of dehydration. Other differentials include sepsis. (4) Anemia Qualifiers: Anemia type: unspecified type Qualified Code(s): D64.9 - Anemia, unspecified Plan: Needs to be on erythropoietin. Check iron studies. (5) Hypertension Qualifiers: Hypertension type: essential hypertension Qualified Code(s): I10 - Essential (primary) hypertension
[2016-08-20] MEDS ORDERED: ONDANSETRON HCL INJ/PF 4 MG/2 ML SDV IV ONE (20:08)
--- NOTE | 2016-08-20 20:16 | EKG REPORT ---
SEVERITY:- ABNORMAL ECG - SINUS RHYTHM NONSPECIFIC T ABNORMALITIES, DIFFUSE LEADS : Confirmed by: Marc Steward MD 20-Aug-2016 20:14:57
[2016-08-21 00:43] VITALS: BP 112/82
== END 2016-08-21 00:53 | disposition short-term general hospital (02) ==
LOC: ER 14:54
DX: R94.5 Abnormal results of liver function studies (principal); R50.9 Fever, unspecified; E11.22 Type 2 diabetes mellitus with diabetic chronic kidney disease; I12.0 Hypertensive chronic kidney disease with stage 5 chronic kidney disease or end stage renal disease; N18.6 End stage renal disease; R53.1 Weakness; I95.89 Other hypotension; D63.1 Anemia in chronic kidney disease; Z99.2 Dependence on renal dialysis
CPT/HCPCS: 93005; 99285; 96361; 96375; 96365; 96366; 36415; 87040; 87086; 87205; 87070; 82962; 83690; 85025; 85610; 89050; 82272; 87075; 80053; 81001; 82803; 71010; 76705; 93976; 74176; 93010; J2405; J3370; 90945

== ENCOUNTER → 2017-02-03 | Outpatient (CLI) | payer MEDICARE, OTHER | LOC: OD 13:04 | PROVIDERS: ATTEND Internal Medicine Nephrology | DX: N18.6 End stage renal disease (principal) | CPT/HCPCS: 36415; 84132 ==

== ENCOUNTER → 2017-02-27 | Outpatient (CLI) | payer MEDICARE, OTHER | LOC: DAVITANR 10:17 | PROVIDERS: ATTEND Internal Medicine Nephrology | DX: E87.6 Hypokalemia (principal) | CPT/HCPCS: 84132 ==

== ENCOUNTER 2017-03-30 10:00 | Day surgery (SDC) | payer MEDICARE, OTHER ==
[2017-03-25 10:52] LABS: HEMATOCRIT 28.8 % (37.9-51.0); HEMOGLOBIN 9.1 g/dL (13.5-17.0); HGB HCT DIFFERENCE -1.5; MEAN CORPUSCULAR HEMOGLOBIN 24.8 pg (27.0-33.4); MEAN CORPUSCULAR HGB CONC 31.4 g/dL (32.0-36.0); MEAN CORPUSCULAR VOLUME 79 fl (80-97); RED BLOOD COUNT 3.64 10^6/uL (4.35-5.55); RED CELL DISTRIBUTION WIDTH 20.4 % (11.5-14.0)
[2017-03-25 11:16] LABS: ANION GAP 15 (5-19); BLOOD UREA NITROGEN 28 mg/dL (7-20); CALCIUM 10.4 mg/dL (8.4-10.2); CARBON DIOXIDE 28 mmol/L (22-30); CHLORIDE 99 mmol/L (98-107); GLUCOSE 162 mg/dL (75-110); POTASSIUM 4.3 mmol/L (3.6-5.0); SODIUM 142.1 mmol/L (137-145)
--- NOTE | 2017-03-26 09:09 | EKG REPORT ---
SEVERITY:- BORDERLINE ECG - SINUS RHYTHM LEFT AXIS DEVIATION BORDERLINE T WAVE ABNORMALITIES : Confirmed by: Noelle Sepulveda MD 26-Mar-2017 09:07:48
[~2017-03-30 10:00] MED LIST: BUPIVACAINE HCL 0.25 % INJ/PF (2.5 MG/1 ML) 30 ML VIAL ONE; CEFAZOLIN 1 GM/D5W RTU 1 GM/50 ML RTUPB IV PRN; LACTATED RINGERS 1000 ML IV PRN; LIDOCAINE 0.5% INJ-PF (5 MG/ML) 50 ML SDV ONE
[2017-03-30 11:08] LABS: ANION GAP 17 (5-19); BLOOD UREA NITROGEN 36 mg/dL (7-20); CALCIUM 9.8 mg/dL (8.4-10.2); CARBON DIOXIDE 26 mmol/L (22-30); CHLORIDE 100 mmol/L (98-107); CREATININE RESULT 7.22 mg/dL (0.52-1.25); GLUCOSE 125 mg/dL (75-110); POTASSIUM 4.6 mmol/L (3.6-5.0); SODIUM 143.3 mmol/L (137-145)
[2017-03-30] MEDS ORDERED: FENTANYL CITRATE INJ/PF 100 MCG/2 ML AMPUL ONE (11:54)
[2017-03-30] MEDS ORDERED: MIDAZOLAM 2 MG/2 ML INJ ONE (11:54)
[2017-03-30] MEDS ORDERED: PROPOFOL INJ 200 MG/20 ML VIAL IV ONE (11:55)
[2017-03-30] MEDS ORDERED: OXYCODONE-ACETAMINOPHEN 5-325 MG TABLET PO PRN ×2 (12:18)
[2017-03-30] MEDS ORDERED: MORPHINE SULFATE 10 MG/ML INJ IV PRN (12:18)
[2017-03-30] MEDS ORDERED: PROMETHAZINE HCL INJ 25 MG/1 ML VIAL IV PRN ×2 (12:18)
[2017-03-30] MEDS ORDERED: MEPERIDINE HCL/PF INJ 25 MG/1 ML DISP.SYRIN IV PRN (12:18)
[2017-03-30] MEDS ORDERED: FENTANYL CITRATE INJ/PF 100 MCG/2 ML AMPUL IV PRN ×3 (12:18)
[2017-03-30] MEDS ORDERED: DIPHENHYDRAMINE HCL 50 MG/ML VIAL IV PRN (12:18)
--- NOTE | 2017-03-30 12:41 | PDOC DISCHARGE SUMMARY ---
Discharge Summary (SDC) - Discharge Final Diagnosis: #[address] 2. Arteriovenous fistula, left arm. 3. End-stage renal disease on hemodialysis. 4. Diabetes mellitus type 2. #5 peripheral arterial disease. 6. Hypertension. Date of Surgery: 03/30/17 Discharge Date: 03/30/17 Condition: Fair Treatment or Instructions: Discharge home [after recovery per ASU criteria]. Diet , [renal],as tolerated, when fully awake advance as tolerated. Activities within moderation encouraged. Follow up in my office by appointment in about [1 week]. Call for appointment. Leave wounds [covered], [keep clean and dry, until office visit in 1 week]. Meds per med rec. May shower [in 48 hrs], [try to keep operated area as dry as possible]. Referrals: LINDA DELANEY DO [Primary Care Provider] - Discharge Diet: Other (Comments) - Renal ADA. Respiratory Treatments at Home: Deep Breathing/Coughing Discharge Activity: Activity As Tolerated Report the Following to Your Physician Immediately: Shortness of Breath, Unusual Bleeding
--- NOTE | 2017-03-30 12:44 | PDOC DISCHARGE SUMMARY ---
Discharge Summary (SDC) - Discharge Final Diagnosis: #[address] catheter [address] place, redundant. 2. AV fistula left arm. 3. End-stage renal disease on hemodialysis. 4. Diabetes mellitus type 2. 5. Peripheral arterial disease. 6. Hypertension. Date of Surgery: 03/30/17 Condition: Fair Treatment or Instructions: Discharge home [after recovery per ASU criteria]. Diet , [renal],as tolerated, when fully awake advance as tolerated. Activities within moderation encouraged. Follow up in my office by appointment in about [1 week]. Call for appointment. Leave wounds [covered], [keep clean and dry, until office visit in 1 week]. Meds per med rec. May shower [in 48 hrs], [try to keep operated area as dry as possible]. Prescriptions: Oxycodone HCl/Acetaminophen [Percocet 5-325 mg Tablet] 1 tab PO ASDIR PRN #15 tab PRN Reason: Referrals: LINDA DELANEY DO [Primary Care Provider] - Respiratory Treatments at Home: Deep Breathing/Coughing Discharge Activity: Activity As Tolerated Report the Following to Your Physician Immediately: Shortness of Breath, Unusual Bleeding
--- NOTE | 2017-03-30 12:51 | Operative Report ---
Operative Report DATE OF SURGERY: 03/30/17 PREOPERATIVE DIAGNOSIS: #[address] catheter [address], redundant. 2. AV fistula left arm. 3. End-stage renal disease on hemodialysis. 4. Diabetes mellitus type 2. 5. Peripheral arterial disease. 6. Hypertension. POSTOPERATIVE DIAGNOSIS: #[address] catheter [address], redundant. Post removal. 2. AV fistula left arm. 3. End-stage renal disease on hemodialysis. 4. Diabetes mellitus type 2. 5. Peripheral arterial disease. 6. Hypertension. OPERATION: Removal of peritoneal dialysis cath, cuffed. SURGEON: JIMMY LUNA HOTSHOT SUPERINTENDENT: None ANESTHESIA: LMAC TISSUE REMOVED OR ALTERED: Not applicable. COMPLICATIONS: None ESTIMATED BLOOD LOSS: 5 mL. INTRAOPERATIVE FINDINGS: Of a well founded peritoneal dialysis catheter, left lower abdomen. Both cuffs were dissected out the entire catheter removed and discarded. Dissection of the cuff was done only on the superficial surface inferiorly which was dissected out bluntly. The rectus sheath and rectus muscles were identified. There was bleeding from the muscle which was controlled with cautery and also with suture ligatures of 3-0 PDS placed either side through the muscle and fascia and tied snugly. Hemostasis was carefully inspected at the end of the procedure and seem fine. No ongoing bleeding whatsoever. A small piece of Surgicel was left in place as well. PROCEDURE: PROCEDURE: The abdomen]was prepared with [Betadine] and draped out with sterile linen. After the"universal time-out", in which it was confirmed that the patient [did receive antibiotic], the procedure commenced. The patient was appropriately anesthetized. Local anesthesia was infiltrated at the exit site and also the horizontal original site of insertion. Local anesthesia was quite generous around the catheter was isolated from surrounding tissues as much as possible. The incision was now made for a distance of about 4 cm and dissection proceeded down to the subcutaneous tissues using cautery down to the catheter. The superficial cuff was identified and dissected away from the surrounding tissues. The catheter was transected and the superficial portion removed and discarded. The Sherrell clamp was placed on the remaining catheter for gentle traction. Dissection now proceeded on the superficial aspect of the catheter dissecting through the rectus sheath and muscle down to the cuff. The cuff was now dissected bluntly away from the surrounding tissues and the entire catheter was removed and discarded. Bleeding was noted from the rectus muscle, arterial this was controlled with cautery and then suture ligature, suture of 3-0 PDS. This was done on both sides including the muscle and fascia tying down snugly but not tightly. There was inspected for several minutes to make sure that hemostasis was satisfactory. The small piece of Surgicel was then left in this area. The wound was then closed with 2 interrupted sutures of 3-0 PDS placed through skin skin and subcutaneous tissues. The wound was now dressed with gauze and the procedure concluded.
[2017-03-30 15:03] VITALS: BP 126/72
== END 2017-03-30 14:31 | disposition home or self-care (01) ==
LOC: OROUT 10:00
PROVIDERS: ATTEND Surgery
PROC: 0WPG03Z Removal of Infusion Device from Peritoneal Cavity, Open Approach (ICD-10-PCS; principal; 2017-03-30 12:00)
DX: Z49.02 Encounter for fitting and adjustment of peritoneal dialysis catheter (principal); I12.0 Hypertensive chronic kidney disease with stage 5 chronic kidney disease or end stage renal disease; E11.22 Type 2 diabetes mellitus with diabetic chronic kidney disease; N18.6 End stage renal disease; I73.9 Peripheral vascular disease, unspecified; D64.9 Anemia, unspecified; M19.90 Unspecified osteoarthritis, unspecified site; Z79.899 Other long term (current) drug therapy
CPT/HCPCS: 93005; 36415 ×2; 82962; 85027; 80048 ×2; 93010; 49422; J2250; J0690; J3010; J3490; J2704; 800

== ENCOUNTER → 2018-03-02 | Outpatient (CLI) | payer MEDICARE, OTHER ==
--- NOTE | 2018-03-02 15:51 | RADIOLOGY REPORT (SQ) ---
EXAM DESCRIPTION: VENOUS UNILATERAL UPPER COMPLETED DATE/TIME: 03/02/2018 3:24 pm REASON FOR STUDY: LUE SWELLING R22.32 LOCALIZED SWELLING, MASS AND LUMP, LEFT UPPER LIMB I82.622 A CUTE EMBOLISM AND THROMBOSIS OF DEEP VEINS OF L UP COMPARISON: None. TECHNIQUE: Dynamic and static mao scale and color images acquired of the left arm venous system. Se lected spectral images acquired with additional compression and augmentation maneuvers. The contralat eral subclavian vein and internal jugular vein were also imaged. Images stored on PACS. LIMITATIONS: None. FINDINGS: LEFT INTERNAL JUGULAR VEIN: Normal phasicity, compression, augmentation. No visualized echogenic material on mao scale. No defects on color images. Comparison opposite side normal. SUBCLAVIAN VEIN: Normal compression, augmentation. No visualized echogenic material on mao scale. No defects on color images. AXILLARY VEIN: Normal compression, augmentation. No visualized echogenic material on mao scale. No d efects on color images. BRACHIAL VEIN: Normal compression, augmentation. No visualized echogenic material on mao scale. No d efects on color images. BASILIC VEIN: Normal compression, augmentation. No visualized echogenic material on mao scale. No de fects on color images. CEPHALIC VEIN: Pulsatile flow is present related to an AV fistula between the brachial artery and cep halic vein. No cephalic vein thrombosis. OTHER: No other significant finding. RIGHT SUBCLAVIAN VEIN AND INTERNAL JUGULAR VEIN: Normal phasicity, compression and augmentation. No visualized echogenic material on mao scale. No de fects on color images. IMPRESSION: NO EVIDENCE DVT OR SVT LEFT ARM. TECHNICAL DOCUMENTATION: JOB ID: [id number] [employer]- All Rights Reserved Reading location - IP/workstation name: [email or web address]
== END ==
LOC: SP 12:00
PROVIDERS: ATTEND Physician Assistant Medical
DX: I82.622 Acute embolism and thrombosis of deep veins of left upper extremity (principal); R22.32 Localized swelling, mass and lump, left upper limb
CPT/HCPCS: 93971